=== PATIENT | female | born 1985 | race African-American/Black ===

== ENCOUNTER 2019-01-09 12:38 | Emergency (ER) | payer SELFPAY ==
[~2019-01-09] VITALS: Ht 170.2 cm; Wt 58.0 kg
[2019-01-09 13:08] VITALS: Ht 170.2 cm; Wt 58.0 kg
[2019-01-09] MEDS ORDERED: ONDANSETRON (ODT) 4 MG TAB ODT STA ×2 (15:18→17:53)
[2019-01-09] MEDS ORDERED: HYDROmorphONE 2 MG/ML SYG IM STA ×2 (15:18→17:53)
[2019-01-09] MEDS ORDERED: SOD CHLORIDE 0.9% 1,000 ML IV STA (15:18)
[2019-01-09] MEDS ORDERED: DIPHENHYDRAMINE 50 MG INJ IM ONE (16:00)
[2019-01-09] MEDS ORDERED: HYDROmorphONE 4 MG TAB PO ONE (17:30)
[2019-01-09 18:45] VITALS: BP 127/93; PULSE 71; RESP 20
[2019-01-09] MEDS ORDERED: HYDR500C3 PO (19:23)
--- NOTE | 2019-01-09 19:23 | ERD ---
ER Documentation Chief Complaint Chief Complaint sickle cell pain x 3 days HPI 33-year-old female presenting with complaints of sickle cell pain. 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 She has been taking her usual dose of Dilaudid 4 mg every 4 hours at home without relief of her symptoms. She states that her pain is in her low back, legs, and arms. She denies any chest pain, shortness of breath, fever, chills, recent illnesses, vomiting or diarrhea. She takes hydroxyurea on a daily basis. However she states that she is running out. ROS All systems reviewed and are negative except as per history of present illness. Medications Home Meds Active Scripts Hydroxyurea* (Hydroxyurea*) 500 Mg Capsule, 500 MG PO BID, #14 CAP Prov:STEVENSON GONZALEZ MD 01/09/19 Allergies Allergies: Coded Allergies: No Known Allergy (Unverified , 01/09/19) PMhx/Soc History of Surgery: Yes (CAESARIAN SECTION X 2; CYST REMOVAL) Hx Miscellaneous Medical Probl: Yes (SICKLE CELL ANEMIA) Hx Alcohol Use: No Hx Substance Use: No Hx Tobacco Use: No Smoking Status: Never smoker FmHx Family History: No diabetes Physical Exam Vitals Vital Signs Date Temp Pulse Resp B/P (MAP) Pulse Ox O2 O2 Flow FiO2 Time Delivery Rate 01/09/19 98.6 71 20 127/93 97 Room Air 18:45 (104) 01/09/19 98.3 74 18 109/56 100 13:08 (73) Physical Exam Const: No acute distress, sitting comfortably in bed Head: Atraumatic Eyes: Normal Conjunctiva, no scleral icterus, PERRLA ENT: Normal External Ears, Nose and Mouth. Neck: Full range of motion. No meningismus. Resp: Clear to auscultation bilaterally Cardio: Regular rate and rhythm, no murmurs Abd: Soft, non tender, non distended. Normal bowel sounds Skin: No petechiae or rashes Back: No midline or flank tenderness Ext: No cyanosis, or edema Neur: Awake and alert, normal speech, no facial asymmetry, moving all extremities, normal gait Psych: Normal Mood and Affect Result Diagram: 01/09/19 1528 01/09/19 1527 Results 24 hrs Laboratory Tests Test 01/09/19 15:27 01/09/19 15:28 01/09/19 15:37 01/09/19 15:39 Sodium Level 139 mmol/L Potassium Level 3.7 mmol/L Chloride Level 108 mmol/L Carbon Dioxide 24 mmol/L Level Anion Gap 7 Blood Urea Nitrogen 12 mg/dl Creatinine 0.53 mg/dl Est Glomerular > 60 mL/min Filtrat Rate mL/min Glucose Level 75 mg/dl Calcium Level 8.9 mg/dl Total Bilirubin 0.2 mg/dl Direct Bilirubin 0.00 mg/dl Indirect Bilirubin 0.2 mg/dl Aspartate Amino 27 IU/L Transf (AST/SGOT) Alanine 20 IU/L Aminotransferase (A LT/SGPT) Alkaline 74 IU/L Phosphatase Total Protein 7.2 g/dl Albumin 3.9 g/dl Globulin 3.30 g/dl Albumin/Globulin 1.18 Ratio White Blood Count 5.1 10^3/ul Red Blood Count 3.57 10^6/ul Hemoglobin 8.1 g/dl Hematocrit 27.4 % Mean Corpuscular 76.8 fl Volume Mean Corpuscular 22.7 pg Hemoglobin Mean Corpuscular 29.6 g/dl Hemoglobin Concent Red Cell 14.6 % Distribution Width Platelet Count 341 10^3/UL Mean Platelet 9.9 fl Volume Immature 0.200 % Granulocytes % Neutrophils % 47.0 % Lymphocytes % 45.1 % Monocytes % 5.7 % Eosinophils % 1.6 % Basophils % 0.4 % Nucleated Red Blood 0.0 /100WBC Cells % Immature 0.010 10^3/ul Granulocytes # Neutrophils # 2.4 10^3/ul Lymphocytes # 2.3 10^3/ul Monocytes # 0.3 10^3/ul Eosinophils # 0.1 10^3/ul Basophils # 0.0 10^3/ul Nucleated Red Blood 0.0 10^3/ul Cells # Absolute 0.053 X10^6 Reticulocyte Count Percent 1.5 % Reticulocyte Count Bedside Urine pH 6.0 (LAB) Bedside Urine Trace Protein (LAB) Bedside Urine Negative Glucose (UA) Bedside Urine Negative Ketones (LAB) Bedside Urine Blood Negative Bedside Urine Negative Nitrite (LAB) Bedside Urine Negative Leukocyte Esterase (L POC Beta HCG, NEGATIVE Qualitative Current Medications Medications Dose Sig/Edmar Start Time Status Last (Trade) Ordered Route PRN Stop Time Admin Dose Reason Admin 2 mg ONCE STAT 01/09/19 DC 01/09/19 Hydromorphone IM 15:18 15:43 HCl 01/09/19 15:20 (Dilaudid) Ondansetron 4 mg ONCE STAT 01/09/19 DC 01/09/19 HCl (Zofran ODT 15:18 15:43 Odt) 01/09/19 15:20 Sodium 1,000 ml @ Q1H STAT 01/09/19 DC Chloride 1,000 mls/hr IV 15:18 01/09/19 16:17 25 mg ONCE ONCE 01/09/19 DC 01/09/19 Diphenhydrami IM 16:00 16:15 ne HCl 01/09/19 16:03 (Benadryl) 4 mg ONCE ONCE 01/09/19 DC Hydromorphone PO 17:30 HCl 01/09/19 17:31 (Dilaudid) 2 mg ONCE STAT 01/09/19 DC 01/09/19 Hydromorphone IM 17:53 18:13 HCl 01/09/19 17:54 (Dilaudid) Ondansetron 8 mg ONCE STAT 01/09/19 DC 01/09/19 HCl (Zofran ODT 17:53 18:12 Odt) 01/09/19 17:54 25 mg ONCE ONCE 01/09/19 DC 01/09/19 Diphenhydrami PO 19:30 19:34 ne HCl 01/09/19 19:31 (Benadryl) Procedures/MDM EMERGENT LABS AND DIAGNOSTIC STUDIES: Lab Results above were reviewed and interpreted by me. CBC: anemia with Hgb 8.1. no evidence of infection CMP: No evidence of electrolyte abnormality, renal failure, hypoglycemia, hemolysis, liver failure, or biliary obstruction Retic count normal UA: no evidence of infection negative Initial Nursing notes reviewed. Previous Medical Records requested via the Electronic Health Record. EMERGENCY DEPARTMENT COURSE / MEDICAL DECISION MAKING: Patient is presenting with stated history of sickle cell anemia, however I have no previous records on her. She is hemodynamically stable with no signs of sepsis or acute chest syndrome. She is neurovascularly intact on exam. IV fluids were ordered but it was difficult to get an IV on the patient. She req uested IM pain medications as well as Benadryl which was given. She received 2 doses of IM Dilaudid as well as 1 dose of oral Dilaudid. Upon reevaluation, patient felt much better. She had been orally hydrating while in the ER. I feel the patient is stable for discharge at this time. She did request a refill of her hydroxyurea, which was given. I discussed with her the importance of arranging outpatient follow-up with a tetryl nitrator operator and primary care physician with her chronic condition. Patient is agreeable with this plan. Patient's blood pressure was elevated (>120/80) but appears stable without evidence of hypertensive emergency or urgency. The patient was counseled about the risks of hypertension and urged to pursue outpatient monitoring and therapy within a week with their primary care physician. Departure Diagnosis: Primary Impression: Sickle cell pain crisis Condition: Stable Patient Instructions: Sickle Cell Pain Crisis Referrals: [facility] YOU HAVE RECEIVED A MEDICAL SCREENING EXAM AND THE RESULTS INDICATE THAT YOU DO NOT HAVE A CONDITION THAT REQUIRES URGENT TREATMENT IN THE EMERGENCY DEPARTMENT. FURTHER EVALUATION AND TREATMENT OF YOUR CONDITION CAN WAIT UNTIL YOU ARE SEEN IN YOUR DOCTORS OFFICE WITHIN THE NEXT 1-2 DAYS. IT IS YOUR RESPONSIBILITY TO MAKE AN APPOINTMENT FOR FOLOW-UP CARE. IF YOU HAVE A PRIMARY DOCTOR --you should call your primary doctor and schedule an appointment IF YOU DO NOT HAVE A PRIMARY DOCTOR YOU CAN CALL OUR PHYSICIAN REFERRAL HOTLINE AT IF YOU CAN NOT AFFORD TO SEE A PHYSICIAN YOU CAN CHOSE FROM THE FOLLOWING [facility] [address] [facility] [address] [facility] [address] [facility] [address] [facility] [address]. [facility]. [address] [facility]. [facility] YOU HAVE RECEIVED A MEDICAL SCREENING EXAM AND THE RESULTS INDICATE THAT YOU DO NOT HAVE A CONDITION THAT REQUIRES URGENT TREATMENT IN THE EMERGENCY DEPARTMENT. FURTHER EVALUATION AND TREATMENT OF YOUR CONDITION CAN WAIT UNTIL YOU ARE SEEN IN YOUR DOCTORS OFFICE WITHIN THE NEXT 1-2 DAYS. IT IS YOUR RESPONSIBILITY TO MAKE AN APPOINTMENT FOR FOLOW-UP CARE. IF YOU HAVE A PRIMARY DOCTOR --you should call your primary doctor and schedule and appointment IF YOU DO NOT HAVE A PRIMARY DOCTOR YOU CAN CALL OUR PHYSICIAN REFERRAL HOTLINE AT . IF YOU CAN NOT AFFORD TO SEE A PHYSICIAN YOU CAN CHOSE FROM THE FOLLOWING [facility] INSTITUTIONS: [facility] [place] [address] [place] [address] [facility] [address] [place] [address] [facility] [address] [place] [address] STEVENSON GONZALEZ MD Jan 09, 2019 19:23
[2019-01-09] MEDS ORDERED: DIPHENHYDRAMINE 25 MG CAP PO ONE (19:30)
== END 2019-01-09 19:35 | disposition home or self-care (01) ==
LOC: E/R 12:38
DX: D57.419 Sickle-cell thalassemia, unspecified, with crisis (principal)
CPT/HCPCS: 80053; 81003; 81025; 85025; 85045; 86850; 86900; 86901; 99283; J1170; J1200; J7030

== ENCOUNTER 2019-01-15 18:34 | Emergency (ER) | payer SELFPAY ==
[~2019-01-15] VITALS: Ht 157.5 cm; Wt 58.6 kg
[~2019-01-15 18:34] MED LIST: HYDR500C3 PO
[2019-01-15 19:21] VITALS: Ht 157.5 cm; Wt 58.6 kg
[2019-01-16] MEDS ORDERED: ONDANSETRON (ODT) 4 MG TAB ODT STA (01:09)
[2019-01-16] MEDS ORDERED: HYDROmorphONE 2 MG/ML SYG IM STA ×2 (01:09→04:11)
[2019-01-16] MEDS ORDERED: DIPHENHYDRAMINE 50 MG INJ IM ONE (01:30)
[2019-01-16] MEDS ORDERED: IRON1TAB78 PO (02:48)
[2019-01-16] MEDS ORDERED: FOLI-49 PO (02:48)
[2019-01-16] MEDS ORDERED: BEN50 PO (02:48)
[2019-01-16] MEDS ORDERED: ONDA8TAB83 PO (02:48)
[2019-01-16] MEDS ORDERED: SERT-165 PO (02:51)
[2019-01-16] MEDS ORDERED: HYDR4TAB PO (02:51)
[2019-01-16] MEDS ORDERED: SERT50TA6 PO (02:51)
[2019-01-16] MEDS ORDERED: TRAZ-111 PO (02:51)
[2019-01-16 05:40] VITALS: BP 128/79; PULSE 78; RESP 16
--- NOTE | 2019-01-29 02:14 | ERD ---
ER Documentation Chief Complaint Chief Complaint worsening back pain x2 days. hx sickle cell HPI This is a 33-year-old female worsening back pain for 2 days. Patient has history of sickle cell pain disease. Pain is moderate to severe in severity. She is been seen here multiple times for this complaints recently. ROS All systems reviewed and are negative except as per history of present illness. Medications Home Meds Active Scripts Hydroxyurea* (Hydroxyurea*) 500 Mg Capsule, 500 MG PO BID, #14 CAP Prov:STEVENSON GONZALEZ MD 01/09/19 Reported Medications Quetiapine Fumarate* (Seroquel*) 400 Mg Tablet, 400 MG PO BID, TAB 3 Trazodone Hcl* (Trazodone Hcl*) 50 Mg Tablet, 50 MG PO BID, #60 TAB 01/16/19 Sertraline Hcl* (Sertraline Hcl*) 100 Mg Tablet, 100 MG PO QAM, #30 TAB 01/16/19 Sertraline Hcl* (Sertraline Hcl*) 50 Mg Tablet, 50 MG PO QPM, #30 TAB 01/16/19 Hydromorphone Hcl* (Hydromorphone Hcl*) 4 Mg Tablet, 4 MG PO Q4H PRN for PAIN, TAB 01/16/19 Diphenhydramine Hcl* (Benadryl*) 50 Mg Cap, 50 MG PO Q6 PRN for ITCHING, CAP 01/16/19 Ondansetron Hcl* (Ondansetron Hcl*) 8 Mg Tablet, 8 MG PO Q6H PRN for NAUSEA AND OR VOMITING, TAB 01/16/19 Folic Acid* (Folic Acid*) 1 Mg Tablet, 1 MG PO DAILY, TAB 01/16/19 Discontinued Reported Medications Iron,Carbonyl/Vit C/Vit B12/Fa (IRON 100 PLUS TABLET) 1 Each Tablet, 1 EACH PO, TAB 01/16/19 Allergies Allergies: Coded Allergies: ketorolac (Unverified Allergy, Unknown, HIVES, 01/16/19) morphine (Unverified Allergy, Unknown, HIVES, 01/16/19) prochlorperazine (Unverified Allergy, Unknown, HIVES, 01/16/19) haloperidol (Unverified Adverse Reaction, Unknown, 01/16/19) metoclopramide (Unverified Adverse Reaction, Unknown, 01/16/19) PMhx/Soc History of Surgery: Yes (CAESARIAN SECTION X 2; CYST REMOVAL) Hx Miscellaneous Medical Probl: Yes (SICKLE CELL ANEMIA) Hx Alcohol Use: No Hx Substance Use: No Hx Tobacco Use: No Smoking Status: Never smoker Physical Exam Physical Exam Const: No acute distress Head: Atraumatic Eyes: Normal Conjunctiva ENT: Normal External Ears, Nose and Mouth. Neck: Full range of motion. No meningismus. Resp: Clear to auscultation bilaterally Cardio: Regular rate and rhythm, no murmurs Abd: Soft, non tender, non distended. Normal bowel sounds Skin: No petechiae or rashes Back: No midline or flank tenderness Ext: No cyanosis, or edema Neur: Awake and alert Psych: Normal Mood and Affect Results 24 hrs Laboratory Tests Test 01/16/19 02:52 White Blood Count 6.3 10^3/ul Red Blood Count 3.88 10^6/ul Hemoglobin 8.9 g/dl Hematocrit 29.9 % Mean Corpuscular Volume 77.1 fl Mean Corpuscular Hemoglobin 22.9 pg Mean Corpuscular Hemoglobin Concent 29.8 g/dl Red Cell Distribution Width 15.0 % Platelet Count 339 10^3/UL Mean Platelet Volume 9.8 fl Immature Granulocytes % 0.500 % Neutrophils % 45.1 % Lymphocytes % 46.1 % Monocytes % 5.6 % Eosinophils % 2.2 % Basophils % 0.5 % Nucleated Red Blood Cells % 0.0 /100WBC Immature Granulocytes # 0.030 10^3/ul Neutrophils # 2.8 10^3/ul Lymphocytes # 2.9 10^3/ul Monocytes # 0.4 10^3/ul Eosinophils # 0.1 10^3/ul Basophils # 0.0 10^3/ul Nucleated Red Blood Cells # 0.0 10^3/ul Absolute Reticulocyte Count 0.082 X10^6 Percent Reticulocyte Count 2.1 % Sodium Level 144 mmol/L Potassium Level 3.6 mmol/L Chloride Level 109 mmol/L Carbon Dioxide Level 25 mmol/L Anion Gap 10 Blood Urea Nitrogen 14 mg/dl Creatinine 0.69 mg/dl Est Glomerular Filtrat Rate mL/min > 60 mL/min Glucose Level 110 mg/dl Calcium Level 9.4 mg/dl Lactate Dehydrogenase 455 IU/L Current Medications Medications Dose Sig/Edmar Start Time Status Last (Trade) Ordered Route PRN Stop Time Admin Dose Reason Admin 2 mg ONCE STAT 01/16/19 DC 01/16/19 Hydromorphone IM 01:09 01:47 HCl 01/16/19 01:11 (Dilaudid) 50 mg ONCE ONCE 01/16/19 DC 01/16/19 Diphenhydrami IM 01:30 01:47 ne HCl 01/16/19 01:31 (Benadryl) Ondansetron 4 mg ONCE STAT 01/16/19 DC 01/16/19 HCl (Zofran ODT 01:09 01:45 Odt) 01/16/19 01:11 2 mg ONCE STAT 01/16/19 DC 01/16/19 Hydromorphone IM 04:11 04:54 HCl 01/16/19 04:12 (Dilaudid) Procedures/MDM Medical decision make: 33-year-old female with sickle cell pain crisis. At this point clinically stable for outpatient management. Pain is resolved. She will be discharged home. Departure Diagnosis: Primary Impression: Back pain Back pain location: back pain in unspecified location Chronicity: unspeci fied Back pain laterality: unspecified Qualified Codes: M54.9 - Dorsalgia, unspecified Condition: Stable Patient Instructions: Back Pain (Acute Or Chronic) CAILIN BREWSTER Jan 29, 2019 02:14
== END 2019-01-16 05:55 | disposition home or self-care (01) ==
LOC: E/R 18:34
DX: M54.9 Dorsalgia, unspecified (principal); D57.419 Sickle-cell thalassemia, unspecified, with crisis
CPT/HCPCS: 80048; 83615; 85025; 85045; 96372; 99284; J1170; J1200

== ENCOUNTER 2019-01-19 09:21 | Inpatient (IN) | payer SELFPAY ==
[~2019-01-19] VITALS: Ht 172.7 cm; Wt 57.8 kg
[~2019-01-19 09:21] MED LIST changes: +BEN50 PO; +FOLI-49 PO; +HYDR4TAB PO; +IRON1TAB78 PO; +ONDA8TAB83 PO; +SERT-165 PO; +SERT50TA6 PO; +TRAZ-111 PO
[2019-01-19 09:24] VITALS: Ht 172.7 cm; Wt 57.8 kg
[2019-01-19] MEDS ORDERED: ONDANSETRON (ODT) 4 MG TAB ODT STA (09:45)
[2019-01-19] MEDS ORDERED: HYDROmorphONE 2 MG/ML SYG IM STA (09:45)
[2019-01-19] MEDS ORDERED: DIPHENHYDRAMINE 50 MG INJ IM ONE (10:00)
[2019-01-19] MEDS ORDERED: ONDANSETRON 4 MG INJ IV STA (10:53)
[2019-01-19] MEDS ORDERED: SOD CHLORIDE 0.9% 1,000 ML IV STA (10:53)
[2019-01-19] MEDS ORDERED: HYDROmorphONE 1 MG/ML SYG IV STA (10:53)
[2019-01-19] MEDS ORDERED: DIPHENHYDRAMINE 50 MG INJ IV ONE ×2 (11:00→14:00)
--- NOTE | 2019-01-19 11:00 | ERD ---
ER Documentation Chief Complaint Chief Complaint pt bib self with sickle cell pain starting a few days ago, HPI This is a 33-year-old female history of sickle cell anemia recently moved to [facility] who presents to the emergency room complaining of pain to her back and bilateral legs. This is similar in location and character to a regular pain but uncontrolled. She usually takes 4 mg p.o. Dilaudid at home. She denies any fevers chills cough or chest pain. ROS All systems reviewed and are negative except as per history of present illness. Medications Home Meds Active Scripts Hydroxyurea* (Hydroxyurea*) 500 Mg Capsule, 500 MG PO BID, #14 CAP Prov:STEVENSON GONZALEZ MD 01/09/19 Reported Medications Trazodone Hcl* (Trazodone Hcl*) 50 Mg Tablet, 50 MG PO BID, #60 TAB 01/16/19 Sertraline Hcl* (Sertraline Hcl*) 100 Mg Tablet, 100 MG PO QAM, #30 TAB 01/16/19 Sertraline Hcl* (Sertraline Hcl*) 50 Mg Tablet, 50 MG PO QPM, #30 TAB 01/16/19 Hydromorphone Hcl* (Hydromorphone Hcl*) 4 Mg Tablet, 4 MG PO Q4H PRN for PAIN, TAB 01/16/19 Diphenhydramine Hcl* (Benadryl*) 50 Mg Cap, 50 MG PO Q6 PRN for ITCHING, CAP 01/16/19 Ondansetron Hcl* (Ondansetron Hcl*) 8 Mg Tablet, 8 MG PO Q6H PRN for NAUSEA AND OR VOMITING, TAB 01/16/19 Iron,Carbonyl/Vit C/Vit B12/Fa (IRON 100 PLUS TABLET) 1 Each Tablet, 1 EACH PO, TAB 01/16/19 Folic Acid* (Folic Acid*) 1 Mg Tablet, 1 MG PO DAILY, TAB 01/16/19 Allergies Allergies: Coded Allergies: ketorolac (Unverified Allergy, Unknown, HIVES, 01/16/19) morphine (Unverified Allergy, Unknown, HIVES, 01/16/19) prochlorperazine (Unverified Allergy, Unknown, HIVES, 01/16/19) haloperidol (Unverified Adverse Reaction, Unknown, 01/16/19) metoclopramide (Unverified Adverse Reaction, Unknown, 01/16/19) PMhx/Soc History of Surgery: Yes (PARTIAL SPLENECTOMY; CAESARIAN SECTION X 2; OVARIAN CYST REMOVAL) Anesthesia Reaction: No Hx Neurological Disorder: No Hx Respiratory Disorders: Yes (ASTHMA) Hx Cardiac Disorders: No Hx Psychiatric Problems: No Hx Miscellaneous Medical Probl: Yes (SICKLE CELL ANEMIA) Hx Alcohol Use: No Hx Substance Use: No Hx Tobacco Use: No Smoking Status: Never smoker FmHx Family History: No diabetes Physical Exam Vitals Vital Signs Date Temp Pulse Resp B/P (MAP) Pulse Ox O2 O2 Flow FiO2 Time Delivery Rate 01/19/19 97.3 76 16 135/83 100 09:24 (100) Physical Exam General: Well developed, well nourished, no acute distress Head: Normocephalic, atraumatic. Eyes: Pupils equally reactive, EOM intact ENT: Moist mucous membranes Neck: Supple, no lymphadenopathy Respiratory: Lungs clear bilaterally, no distress Cardiovascular: RRR, no murmurs, rubs, or gallops Abdominal: Soft, non-tender, non-distended, no peritoneal signs : Deferred MSK: No edema, no unilateral swelling, 5/5 strength Neurologic: Alert and oriented, moving all extremities, normal speech, no focal weakness, no cerebellar signs Skin: No rash Psych: Normal mood Results 24 hrs Laboratory Tests Test 01/19/19 10:18 POC Beta HCG, Qualitative NEGATIVE Current Medications Medications Dose Sig/Edmar Start Time Status Last (Trade) Ordered Route PRN Stop Time Admin Dose Reason Admin 2 mg ONCE STAT 01/19/19 DC 01/19/19 Hydromorphone IM 09:45 01/19/19 09:53 HCl 09:46 (Dilaudid) 50 mg ONCE ONCE 01/19/19 DC 01/19/19 Diphenhydrami IM 10:00 01/19/19 09:53 ne HCl 10:01 (Benadryl) Ondansetron 4 mg ONCE STAT 01/19/19 DC 01/19/19 HCl (Zofran ODT 09:45 01/19/19 09:53 Odt) 09:46 Sodium 1,000 ml @ Q1H STAT 01/19/19 Chloride 1,000 mls/hr IV 10:53 01/19/19 11:52 1 mg ONCE STAT 01/19/19 DC Hydromorphone IV 10:53 01/19/19 HCl 10:56 (Dilaudid) Ondansetron 4 mg ONCE STAT 01/19/19 DC HCl (Zofran IV 10:53 01/19/19 Inj) 10:56 25 mg ONCE ONCE 01/19/19 DC Diphenhydrami IV 11:00 01/19/19 ne HCl 11:01 (Benadryl) Procedures/MDM LAB INTERPRETATION: Laboratory testing is still pending, to be followed by admitting team MEDICAL DECISION MAKING: Patient presents with an exacerbation of pain crisis likely secondary to environmental factors as it is cold and rainy outside and very consistent with her baseline. She exhibits no signs or symptoms concerning for infectious process, acute chest syndrome or acute hemolysis. We discussed a single round of pain medication and potentially discharge. ER COURSE: * Patient was given pain control medication. Persistence of symptoms warrants laboratory testing and inpatient hospitalization. * Patient will be given a second dose of Dilaudid, IV fluids and laboratory testing for hemolysis was initiated. CONSULTATION: [None] DISPOSITION PLAN: Accepting care team and consultations: I discussed the current laboratory data, diagnostic imaging and emergency care provided. Admitting team: Dr. Mccall Admitting team indication: Insurance directed Departure Diagnosis: Primary Impression: Sickle cell pain crisis Condition: Stable LEON EMANUEL MD Jan 19, 2019 11:00
[2019-01-19] MEDS ORDERED: ONDANSETRON 4 MG INJ IV PRN ×2 (12:00→12:30)
[2019-01-19] MEDS ORDERED: ACETAMINOPHEN 325 MG TAB PO PRN ×2 (12:00→12:30)
[2019-01-19] MEDS ORDERED: NACL 0.9% 3 ML SYG IV SCH (12:30)
[2019-01-19] MEDS ORDERED: HYDROmorphONE 1 MG/ML SYG IV PRN (12:30)
--- NOTE | 2019-01-19 12:43 | HP ---
Date/Time of Note Date/Time of Note DATE: 01/19/19 TIME: 12:40 Assessment/Plan VTE Prophylaxis SCD applied (from Nsg): Yes Pharmacological prophylaxis: NA/contraindicated Pharm contraindication: low risk/ambulating Lines/Catheters IV Catheter Type (from Nrsg): Mid Line Assessment/Plan Hospital Course SUBJECTIVE: Seen and evaluated patient in ER room 20. Patient with continued complaints of back pain, bilateral lower extremity pain. OBJECTIVE: Vital signs-see below PHYSICAL EXAM: Constitutional: Well-developed, adequately built AA female, complaining of lower back pain and bilateral lower extremity pain. Psych: nl mood/affect, no complaints Head: atraumatic, normocephalic Eyes: nl conjunctiva, nl sclera ENMT: mucosa pink and moist, nl external ears & nose Neck: non-tender, supple Respiratory: clear to auscultation, normal air movement Cardiovascular: nl pulses, regular rate and rhythm Gastrointestinal: non-tender, soft, bowel sounds active in all 4 quadrants. Musculoskeletal/extremities: nl extremities to inspection, motor strength equal bilaterally, no focal deficit. Normal pulses,no cyanosis, no edema. Neurological: Alert oriented 3,nl speech, nl strength Skin: nl turgor ASSESSMENT/PLAN: 33-year-old AA female with a known history of sickle cell anemia, sleep disorders, here with sickle cell pain crisis. 1. Sickle cell pain crisis. -Admit to medical surgical floor. -We will give IV Dilaudid as needed, IV fluids and obtain lower extremity ultrasound to rule out DVT. 2. Sickle cell anemia -Stable H&H, not requiring transfusion of blood products at this time. -Resume hydroxyurea. -Continue to monitor. 3. Anxiety/sleep disorders. -Resume home medications. DVT prophylaxis: SCDs PUD prophylaxis: Pepcid CODE STATUS: Full code Diet: Regular. Rest of the management depend on hospital course. Approximately 60 m spent on this history and physical. Patient was seen in collaboration with Result Diagram: 01/19/19 1138 01/19/19 1138 Results 24hrs Laboratory Tests Test 01/19/19 10:18 01/19/19 11:38 POC Beta HCG, Qualitative NEGATIVE White Blood Count 5.4 Red Blood Count 3.81 L Hemoglobin 8.4 L Hematocrit 29.3 L Mean Corpuscular Volume 76.9 L Mean Corpuscular Hemoglobin 22.0 L Mean Corpuscular Hemoglobin Concent 28.7 L Red Cell Distribution Width 15.1 H Platelet Count 299 Mean Platelet Volume 9.8 Immature Granulocytes % 0.200 Neutrophils % 60.5 Lymphocytes % 33.0 Monocytes % 3.9 Eosinophils % 2.0 Basophils % 0.4 Nucleated Red Blood Cells % 0.0 Immature Granulocytes # 0.010 Neutrophils # 3.3 Lymphocytes # 1.8 Monocytes # 0.2 L Eosinophils # 0.1 Basophils # 0.0 Nucleated Red Blood Cells # 0.0 Absolute Reticulocyte Count 0.066 Percent Reticulocyte Count 1.7 H Prothrombin Time 12.9 Prothrombin Time Ratio 1.0 INR International Normalized Ratio 0.96 Activated Partial Thromboplast Time 25.1 Sodium Level 141 Potassium Level 3.9 Chloride Level 109 Carbon Dioxide Level 24 Anion Gap 8 Blood Urea Nitrogen 16 Creatinine 0.72 Est Glomerular Filtrat Rate mL/min > 60 Glucose Level 83 Calcium Level 9.3 Total Bilirubin 0.2 Direct Bilirubin 0.00 Indirect Bilirubin 0.2 Aspartate Amino Transf (AST/SGOT) 38 Alanine Aminotransferase (ALT/SGPT) 16 Alkaline Phosphatase 87 Total Protein 7.6 Albumin 4.1 Globulin 3.50 H Albumin/Globulin Ratio 1.17 Serum HCG, Qualitative NEGATIVE HPI/ROS Admit Date/Time Admit Date/Time Jan 19, 2019 at 11:34 Hx of Present Illness 33-year-old -[place]rist[place] female with a history of sickle cell anemia, anxiety/sleep disorders, presented to the emergency room with worsening back/lower extremity pain, states she is in "sickle cell crisis". Patient rece ntly came from [place] and not intending to go back there to live anymore. Patient stated that she tried her 4 mg Dilaudid prescription at home, and was not helping her for the past 4 days, decided to come to the emergency room. Patient denied fever, chills, cough, chest pain, palpitation, shortness of breath, nausea, vomiting, abdominal pain, loss of consciousness, dizziness or other constitutional symptoms. In the emergency room, patient was noted with a hemoglobin 8.4, hematocrit 29.3 with microcytic indicis. Stable vital signs. She was given 2 mg Dilaudid IM with no relief of pain, then she got 1 mg IV with some relief. She was given a liter of normal saline bolus, 25 mg Benadryl. ROS A 12 point review of system was assessed and is negative other than what is mentioned in the HPI. PMH/Family/Social Past Medical History See HPI Medications Current Medications Ondansetron HCl (Zofran Inj) 4 mg BRIDGE ORDER PRN IV NAUSEA/VOMITING; Start 01/19/19 at 12:00; Stop 01/20/19 at 11:59 Acetaminophen (Tylenol Tab) 650 mg ER BRIDGE PRN PO .MILD PAIN 1-3 OR TEMP; Start 01/19/19 at 12:00; Stop 01/20/19 at 11:59 Sodium Chloride 1,000 ml @ 125 mls/hr Q8H IV ; Start 01/19/19 at 12:14 IV Flush (NS 3 ml) 3 ml PER PROTOCOL IV ; Start 01/19/19 at 12:30; Status UNV Ondansetron HCl (Zofran Inj) 4 mg Q6H PRN IV NAUSEA/VOMITING; Start 01/19/19 at 12:30; Status UNV Acetaminophen (Tylenol Tab) 650 mg Q6H PRN PO .PAIN 1-3 OR TEMP; Start 01/19/19 at 12:30; Status UNV Famotidine (Pepcid) 20 mg Q12 PO ; Start 01/19/19 at 21:00; Status UNV Hydromorphone HCl (Dilaudid) 1 mg Q4H PRN IV SEVERE PAIN LEVEL 7-10; Start 01/19/19 at 12:30; Status UNV Diphenhydramine HCl (Benadryl) 50 mg Q6 PRN PO ITCHING; Start 01/19/19 at 12:30; Status UNV Folic Acid (Folic Acid) 1 mg DAILY PO ; Start 01/20/19 at 09:00; Status UNV Hydroxyurea (Hydrea) 500 mg BID PO ; Start 01/19/19 at 21:00; Status UNV Sertraline HCl (Zoloft) 50 mg QPM PO ; Start 01/19/19 at 21:00; Status UNV Sertraline HCl (Zoloft) 100 mg QAM PO ; Start 01/20/19 at 09:00; Status UNV Trazodone HCl (Desyrel) 50 mg HS PRN PO INSOMNIA; Start 01/19/19 at 12:30; Status UNV Coded Allergies: ketorolac (Unverified Allergy, Unknown, HIVES, 01/16/19) morphine (Unverified Allergy, Unknown, HIVES, 01/16/19) prochlorperazine (Unverified Allergy, Unknown, HIVES, 01/16/19) haloperidol (Unverified Adverse Reaction, Unknown, 01/16/19) metoclopramide (Unverified Adverse Reaction, Unknown, 01/16/19) Past Surgical History None Social History Denied history of alcohol, smoking or illicit drug use. Smoking Status: Never smoker Exam/Review of Systems Vital Signs Vitals Vital Signs Date Temp Pulse Resp B/P (MAP) Pulse Ox O2 O2 Flow FiO2 Time Delivery Rate 01/19/19 98.9 79 18 110/95 100 Nasal 2.0 12:32 (100) Cannula MO CADENA NP Jan 19, 2019 12:43
[2019-01-19 13:30] VITALS: BP 110/70; PULSE 86; RESP 17
[2019-01-19] MEDS: SOD CHLORIDE 0.9% 1,000 ML IV SCH ×2 (13:46→21:57)
[2019-01-19] MEDS: HYDROmorphONE 2 MG/ML SYG IV PRN ×3 (14:46→22:54)
[2019-01-19 20:00] VITALS: BP 115/56; PULSE 81; RESP 20
[2019-01-19] MEDS ORDERED: QUET400T PO (20:26)
[2019-01-19] MEDS ORDERED: QUETIAPINE 100 MG TAB PO ONE (21:30)
[2019-01-19] MEDS: FAMOTIDINE 20 MG TAB PO SCH (21:57)
[2019-01-19] MEDS: SERTRALINE 50 MG TAB PO SCH (21:58)
[2019-01-19] MEDS: traZODone 50 MG TAB PO PRN (21:59)
[2019-01-19] MEDS: HYDROXYUREA 500 MG CAP PO SCH (22:33)
[2019-01-19] MEDS: DIPHENHYDRAMINE 50 MG CAP PO PRN (22:54)
[2019-01-20 02:00] VITALS: BP 100/51; PULSE 99; RESP 18
[2019-01-20] MEDS: DIPHENHYDRAMINE 50 MG CAP PO PRN ×2 (05:27→17:07)
[2019-01-20] MEDS: SOD CHLORIDE 0.9% 1,000 ML IV SCH ×3 (05:27→21:57)
[2019-01-20] MEDS: HYDROmorphONE 2 MG/ML SYG IV PRN ×5 (05:27→22:01)
[2019-01-20 07:41] VITALS: BP 94/50; PULSE 78; RESP 16
[2019-01-20] MEDS: FAMOTIDINE 20 MG TAB PO SCH (08:51)
[2019-01-20] MEDS: FOLIC ACID 1 MG TAB PO SCH (08:51)
[2019-01-20] MEDS: HYDROXYUREA 500 MG CAP PO SCH ×2 (08:53→20:19)
[2019-01-20] MEDS: SERTRALINE 100 MG TAB PO SCH (08:56)
--- NOTE | 2019-01-20 10:55 | PN ---
Date/Time of Note Date/Time of Note DATE: 01/20/19 TIME: 10:53 Assessment/Plan VTE Prophylaxis Risk score (from Ns)>0 risk: 1 SCD applied (from Ns): Yes Pharmacological prophylaxis: NA/contraindicated Pharm contraindication: low risk/ambulating Lines/Catheters IV Catheter Type (from [facility]): Mid Line Assessment/Plan Hospital Course 1. Sickle cell pain crisis. -Continue IV Dilaudid as needed, IV fluids and lower extremity ultrasound is negative for DVT 2. Sickle cell anemia -Stable H&H, not requiring transfusion of blood products at this time. -Resumed hydroxyurea. -Continue to monitor. 3. Anxiety/sleep disorders. -Resume home medications. DVT prophylaxis: SCDs DC planning: Continue pain control Result Diagram: 01/20/19 0557 01/20/19 0557 Results 24hrs Laboratory Tests Test 01/19/19 11:38 01/20/19 05:57 White Blood Count 5.4 5.5 Red Blood Count 3.81 L 3.16 L Hemoglobin 8.4 L 7.2 L Hematocrit 29.3 L 24.8 L Mean Corpuscular Volume 76.9 L 78.5 L Mean Corpuscular Hemoglobin 22.0 L 22.8 L Mean Corpuscular Hemoglobin Concent 28.7 L 29.0 L Red Cell Distribution Width 15.1 H 15.0 H Platelet Count 299 248 Mean Platelet Volume 9.8 9.9 Immature Granulocytes % 0.200 0.500 H Neutrophils % 60.5 48.6 Lymphocytes % 33.0 40.9 Monocytes % 3.9 6.9 Eosinophils % 2.0 2.7 Basophils % 0.4 0.4 Nucleated Red Blood Cells % 0.0 0.0 Immature Granulocytes # 0.010 0.030 Neutrophils # 3.3 2.7 Lymphocytes # 1.8 2.3 Monocytes # 0.2 L 0.4 Eosinophils # 0.1 0.2 Basophils # 0.0 0.0 Nucleated Red Blood Cells # 0.0 0.0 Absolute Reticulocyte Count 0.066 Percent Reticulocyte Count 1.7 H Prothrombin Time 12.9 Prothrombin Time Ratio 1.0 INR International Normalized Ratio 0.96 Activated Partial Thromboplast Time 25.1 Sodium Level 141 144 Potassium Level 3.9 4.1 Chloride Level 109 114 H Carbon Dioxide Level 24 23 Anion Gap 8 7 Blood Urea Nitrogen 16 14 Creatinine 0.72 0.64 Est Glomerular Filtrat Rate mL/min > 60 > 60 Glucose Level 83 82 Calcium Level 9.3 8.7 Total Bilirubin 0.2 Direct Bilirubin 0.00 Indirect Bilirubin 0.2 Aspartate Amino Transf (AST/SGOT) 38 Alanine Aminotransferase (ALT/SGPT) 16 Alkaline Phosphatase 87 Total Protein 7.6 Albumin 4.1 Globulin 3.50 H Albumin/Globulin Ratio 1.17 Serum HCG, Qualitative NEGATIVE Magnesium Level 1.9 Subjective 24 Hr Interval Summary Musculoskeletal: bone/joint pain Exam/Review of Systems Exam Vitals Vital Signs Date Temp Pulse Resp B/P (MAP) Pulse Ox O2 O2 Flow FiO2 Time Delivery Rate 01/20/19 97.7 78 16 94/50 (65) 100 07:41 01/19/19 Room Air 13:30 01/19/19 2.0 12:32 Intake and Output 01/19/19 01/19/19 01/20/19 1515:00 23:00 07:00 IntakeIntake Total 480 ml 985 ml BalanceBalance 480 ml 985 ml Constitutional: alert, oriented Respiratory: clear to auscultation Cardiovascular: regular rate and rhythm Gastrointestinal: soft; No distended Musculoskeletal: nl extremities to inspection Results Results 24hrs Laboratory Tests Test 01/19/19 11:38 01/20/19 05:57 White Blood Count 5.4 5.5 Red Blood Count 3.81 L 3.16 L Hemoglobin 8.4 L 7.2 L Hematocrit 29.3 L 24.8 L Mean Corpuscular Volume 76.9 L 78.5 L Mean Corpuscular Hemoglobin 22.0 L 22.8 L Mean Corpuscular Hemoglobin Concent 28.7 L 29.0 L Red Cell Distribution Width 15.1 H 15.0 H Platelet Count 299 248 Mean Platelet Volume 9.8 9.9 Immature Granulocytes % 0.200 0.500 H Neutrophils % 60.5 48.6 Lymphocytes % 33.0 40.9 Monocytes % 3.9 6.9 Eosinophils % 2.0 2.7 Basophils % 0.4 0.4 Nucleated Red Blood Cells % 0.0 0.0 Immature Granulocytes # 0.010 0.030 Neutrophils # 3.3 2.7 Lymphocytes # 1.8 2.3 Monocytes # 0.2 L 0.4 Eosinophils # 0.1 0.2 Basophils # 0.0 0.0 Nucleated Red Blood Cells # 0.0 0.0 Absolute Reticulocyte Count 0.066 Percent Reticulocyte Count 1.7 H Prothrombin Time 12.9 Prothrombin Time Ratio 1.0 INR International Normalized Ratio 0.96 Activated Partial Thromboplast Time 25.1 Sodium Level 141 144 Potassium Level 3.9 4.1 Chloride Level 109 114 H Carbon Dioxide Level 24 23 Anion Gap 8 7 Blood Urea Nitrogen 16 14 Creatinine 0.72 0.64 Est Glomerular Filtrat Rate mL/min > 60 > 60 Glucose Level 83 82 Calcium Level 9.3 8.7 Total Bilirubin 0.2 Direct Bilirubin 0.00 Indirect Bilirubin 0.2 Aspartate Amino Transf (AST/SGOT) 38 Alanine Aminotransferase (ALT/SGPT) 16 Alkaline Phosphatase 87 Total Protein 7.6 Albumin 4.1 Globulin 3.50 H Albumin/Globulin Ratio 1.17 Serum HCG, Qualitative NEGATIVE Magnesium Level 1.9 Medications Medication Current Medications Ondansetron HCl (Zofran Inj) 4 mg BRIDGE ORDER PRN IV NAUSEA/VOMITING; Start 01/19/19 at 12:00; Stop 01/20/19 at 11:59 Acetaminophen (Tylenol Tab) 650 mg ER BRIDGE PRN PO .MILD PAIN 1-3 OR TEMP; Start 01/19/19 at 12:00; Stop 01/20/19 at 11:59 Sodium Chloride 1,000 ml @ 125 mls/hr Q8H IV Last administered on 01/20/19at 05:27; Admin Dose 125 MLS/HR; Start 01/19/19 at 12:14 IV Flush (NS 3 ml) 3 ml PER PROTOCOL IV ; Start 01/19/19 at 12:30 Ondansetron HCl (Zofran Inj) 4 mg Q6H PRN IV NAUSEA/VOMITING; Start 01/19/19 at 12:30 Acetaminophen (Tylenol Tab) 650 mg Q6H PRN PO .PAIN 1-3 OR TEMP; Start 01/19/19 at 12:30 Famotidine (Pepcid) 20 mg Q12 PO Last administered on 01/20/19at 08:51; Admin Dose 20 MG; Start 01/19/19 at 21:00 Diphenhydramine HCl (Benadryl) 50 mg Q6H PRN PO ITCHING Last administered on 01/20/19at 05:27; Admin Dose 50 MG; Start 01/19/19 at 12:30 Folic Acid (Folic Acid) 1 mg DAILY PO Last administered on 01/20/19 08:51; Admin Dose 1 MG; Start 01/20/19 at 09:00 Hydroxyurea (Hydrea) 500 mg BID PO Last administered on 01/20/19 08:53; Admin Dose 500 MG; Start 01/19/19 at 21:00 Sertraline HCl (Zoloft) 50 mg QPM PO Last administered on 01/19/19 21:58; Admin Dose 50 MG; Start 01/19/19 at 21:00 Sertraline HCl (Zoloft) 100 mg QAM PO Last administered on 01/20/19 08:56; Admin Dose 100 MG; Start 01/20/19 at 09:00 Trazodone HCl (Desyrel) 50 mg HS PRN PO INSOMNIA Last administered on 01/19/19 21:59; Admin Dose 50 MG; Start 01/19/19 at 12:30 Hydromorphone HCl (Dilaudid) 2 mg Q4H PRN IV SEVERE PAIN LEVEL 7-10 Last administered on 01/20/19 10:09; Admin Dose 2 MG; Start 01/19/19 at 14:00 TRINIDAD LOVING Jan 20, 2019 10:55
[2019-01-20] MEDS: QUETIAPINE 100 MG TAB PO SCH (12:25)
[2019-01-20] MEDS: SERTRALINE 50 MG TAB PO SCH (20:18)
[2019-01-20 20:24] VITALS: BP 112/72; PULSE 86; RESP 17
[2019-01-20] MEDS ORDERED: QUETIAPINE 100 MG TAB PO SCH (23:00)
[2019-01-21 02:13] VITALS: BP 131/76; PULSE 85; RESP 18
[2019-01-21] MEDS: HYDROmorphONE 2 MG/ML SYG IV PRN ×6 (02:18→23:02)
[2019-01-21] MEDS: SOD CHLORIDE 0.9% 1,000 ML IV SCH ×3 (05:51→20:14)
[2019-01-21 08:02] VITALS: BP 107/66; PULSE 80; RESP 16
[2019-01-21] MEDS ORDERED: QUETIAPINE 100 MG TAB PO SCH (09:00)
[2019-01-21] MEDS: SERTRALINE 100 MG TAB PO SCH (09:20)
[2019-01-21] MEDS: FOLIC ACID 1 MG TAB PO SCH (09:21)
[2019-01-21] MEDS: QUETIAPINE 100 MG TAB PO SCH ×2 (09:21→21:30)
[2019-01-21] MEDS: HYDROXYUREA 500 MG CAP PO SCH ×2 (09:24→21:37)
[2019-01-21 13:45] VITALS: BP 101/65; PULSE 98; RESP 16
--- NOTE | 2019-01-21 16:58 | PN ---
Date/Time of Note Date/Time of Note DATE: 01/21/19 TIME: 16:57 Assessment/Plan VTE Prophylaxis Risk score (from Ns)>0 risk: 1 SCD applied (from Ns): Yes Pharmacological prophylaxis: NA/contraindicated Pharm contraindication: low risk/ambulating Lines/Catheters IV Catheter Type (from [facility]): Mid Line Assessment/Plan Hospital Course 1. Sickle cell pain crisis. -Continue IV Dilaudid as needed, IV fluids and lower extremity ultrasound is negative for DVT 2. Sickle cell anemia -Stable H&H, not requiring transfusion of blood products at this time. -Resumed hydroxyurea. -Continue to monitor. 3. Anxiety/sleep disorders. -Resume home medications. DVT prophylaxis: SCDs DC planning: Continue pain control, anticipate DC home in 1-2 days Result Diagram: 01/21/19 0554 01/20/19 0557 Results 24hrs Laboratory Tests Test 01/21/19 05:54 White Blood Count 5.2 Red Blood Count 3.13 L Hemoglobin 7.0 L Hematocrit 24.4 L Mean Corpuscular Volume 78.0 L Mean Corpuscular Hemoglobin 22.4 L Mean Corpuscular Hemoglobin Concent 28.7 L Red Cell Distribution Width 15.0 H Platelet Count 228 Mean Platelet Volume 9.8 Immature Granulocytes % 0.400 Neutrophils % 51.9 Lymphocytes % 39.0 Monocytes % 5.2 Eosinophils % 3.1 Basophils % 0.4 Nucleated Red Blood Cells % 0.0 Immature Granulocytes # 0.020 Neutrophils # 2.7 Lymphocytes # 2.0 Monocytes # 0.3 Eosinophils # 0.2 Basophils # 0.0 Nucleated Red Blood Cells # 0.0 Subjective 24 Hr Interval Summary Musculoskeletal: bone/joint pain Exam/Review of Systems Exam Vitals Vital Signs Date Temp Pulse Resp B/P (MAP) Pulse Ox O2 O2 Flow FiO2 Time Delivery Rate 01/21/19 98.3 98 16 101/65 93 13:45 (77) 01/19/19 Room Air 13:30 01/19/19 2.0 12:32 Intake and Output 01/20/19 01/20/19 01/21/19 1515:00 23:00 07:00 IntakeIntake Total 1960 ml 1905 ml 1000 ml BalanceBalance 1960 ml 1905 ml 1000 ml Constitutional: alert, oriented Respiratory: clear to auscultation Cardiovascular: regular rate and rhythm Gastrointestinal: soft; No distended Musculoskeletal: nl extremities to inspection Results Results 24hrs Laboratory Tests Test 01/21/19 05:54 White Blood Count 5.2 Red Blood Count 3.13 L Hemoglobin 7.0 L Hematocrit 24.4 L Mean Corpuscular Volume 78.0 L Mean Corpuscular Hemoglobin 22.4 L Mean Corpuscular Hemoglobin Concent 28.7 L Red Cell Distribution Width 15.0 H Platelet Count 228 Mean Platelet Volume 9.8 Immature Granulocytes % 0.400 Neutrophils % 51.9 Lymphocytes % 39.0 Monocytes % 5.2 Eosinophils % 3.1 Basophils % 0.4 Nucleated Red Blood Cells % 0.0 Immature Granulocytes # 0.020 Neutrophils # 2.7 Lymphocytes # 2.0 Monocytes # 0.3 Eosinophils # 0.2 Basophils # 0.0 Nucleated Red Blood Cells # 0.0 Medications Medication Current Medications Sodium Chloride 1,000 ml @ 125 mls/hr Q8H IV Last administered on 01/21/19 15:42; Admin Dose 125 MLS/HR; Start 01/19/19 at 12:14 IV Flush (NS 3 ml) 3 ml PER PROTOCOL IV ; Start 01/19/19 at 12:30 Ondansetron HCl (Zofran Inj) 4 mg Q6H PRN IV NAUSEA/VOMITING; Start 01/19/19 at 12:30 Acetaminophen (Tylenol Tab) 650 mg Q6H PRN PO .PAIN 1-3 OR TEMP Last administered on 01/20/19 20:18; Admin Dose 650 MG; Start 01/19/19 at 12:30 Diphenhydramine HCl (Benadryl) 50 mg Q6H PRN PO ITCHING Last administered on 01/20/19 17:07; Admin Dose 50 MG; Start 01/19/19 at 12:30 Folic Acid (Folic Acid) 1 mg DAILY PO Last administered on 01/21/19 09:21; Admin Dose 1 MG; Start 01/20/19 at 09:00 Hydroxyurea (Hydrea) 500 mg BID PO Last administered on 01/21/19 09:24; Admin Dose 500 MG; Start 01/19/19 at 21:00 Sertraline HCl (Zoloft) 50 mg QPM PO Last administered on 01/20/19 20:18; Admin Dose 50 MG; Start 01/19/19 at 21:00 Sertraline HCl (Zoloft) 100 mg QAM PO Last administered on 01/21/19 09:20; Admin Dose 100 MG; Start 01/20/19 at 09:00 Trazodone HCl (Desyrel) 50 mg HS PRN PO INSOMNIA Last administered on 01/19/19 21:59; Admin Dose 50 MG; Start 01/19/19 at 12:30 Hydromorphone HCl (Dilaudid) 2 mg Q4H PRN IV SEVERE PAIN LEVEL 7-10 Last administered on 01/21/19 15:21; Admin Dose 2 MG; Start 01/19/19 at 14:00 Quetiapine Fumarate (Seroquel) 400 mg BID PO Last administered on 01/21/19 09:21; Admin Dose 400 MG; Start 01/20/19 at 23:15 TRINIDAD LOVING Jan 21, 2019 16:58
[2019-01-21 21:00] VITALS: BP 103/60; PULSE 81; RESP 17
[2019-01-21] MEDS: traZODone 50 MG TAB PO PRN (21:30)
[2019-01-21] MEDS: SERTRALINE 50 MG TAB PO SCH (21:30)
[2019-01-22 02:00] VITALS: BP 103/60; PULSE 87; RESP 18
[2019-01-22] MEDS: SOD CHLORIDE 0.9% 1,000 ML IV SCH (02:27)
[2019-01-22] MEDS: QUETIAPINE 100 MG TAB PO SCH (09:00)
[2019-01-22 09:17] VITALS: BP 109/59; PULSE 83; RESP 20
[2019-01-22] MEDS: FOLIC ACID 1 MG TAB PO SCH (10:01)
[2019-01-22] MEDS: HYDROmorphONE 2 MG/ML SYG IV PRN ×2 (10:01→12:15)
[2019-01-22] MEDS: HYDROXYUREA 500 MG CAP PO SCH (10:02)
[2019-01-22] MEDS: SERTRALINE 100 MG TAB PO SCH (10:13)
--- NOTE | 2019-01-22 13:54 | DS ---
Date/Time of Note Date/Time of Note DATE: 01/22/19 TIME: 13:54 Discharge Summary Admission/Discharge Info Admit Date/Time Jan 19, 2019 at 11:34 Discharge Date/Time Discharge Diagnosis Sickle cell Patient Condition: Stable Hospital Course Treated with IV dilaudid by Dr Mead for sickle cell pain with good effect. I saw her today she said she felt better and wanted to be discharged. 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 Home Meds Active Scripts Hydroxyurea* (Hydroxyurea*) 500 Mg Capsule, 500 MG PO BID, #14 CAP Prov:STEVENSON GONZALEZ MD 01/09/19 Reported Medications Quetiapine Fumarate* (Seroquel*) 400 Mg Tablet, 400 MG PO BID, TAB 01/19/19 Trazodone Hcl* (Trazodone Hcl*) 50 Mg Tablet, 50 MG PO BID, #60 TAB 01/16/19 Sertraline Hcl* (Sertraline Hcl*) 100 Mg Tablet, 100 MG PO QAM, #30 TAB 01/16/19 Sertraline Hcl* (Sertraline Hcl*) 50 Mg Tablet, 50 MG PO QPM, #30 TAB 01/16/19 Hydromorphone Hcl* (Hydromorphone Hcl*) 4 Mg Tablet, 4 MG PO Q4H PRN for PAIN, TAB 01/16/19 Diphenhydramine Hcl* (Benadryl*) 50 Mg Cap, 50 MG PO Q6 PRN for ITCHING, CAP 01/16/19 Ondansetron Hcl* (Ondansetron Hcl*) 8 Mg Tablet, 8 MG PO Q6H PRN for NAUSEA AND OR VOMITING, TAB 01/16/19 Folic Acid* (Folic Acid*) 1 Mg Tablet, 1 MG PO DAILY, TAB 01/16/19 Discontinued Reported Medications Iron,Carbonyl/Vit C/Vit B12/Fa (IRON 100 PLUS TABLET) 1 Each Tablet, 1 EACH PO, TAB 01/16/19 Primary Care Provider Care Physician No Primary Pending Labs Laboratory Tests Test 01/22/19 06:08 White Blood Count 4.5 10^3/ul (4.8-10.8) Red Blood Count 3.33 10^6/ul (4.20-5.40) Hemoglobin 7.6 g/dl (12.0-16.0) Hematocrit 25.6 % (37.0-47.0) Mean Corpuscular Volume 76.9 fl (82.0-101.0) Mean Corpuscular Hemoglobin 22.8 pg (29.0-33.0) Mean Corpuscular Hemoglobin Concent 29.7 g/dl (32.0-37.0) Red Cell Distribution Width 15.0 % (11.5-14.5) Platelet Count 254 10^3/UL (140-415) Mean Platelet Volume 9.8 fl (7.4-10.4) Immature Granulocytes % 0.200 % (0.001-0.429) Neutrophils % 45.9 % (39.0-77.0) Lymphocytes % 45.6 % (15.0-51.0) Monocytes % 4.3 % (0.0-11.0) Eosinophils % 3.6 % (0.0-7.0) Basophils % 0.4 % (0.0-2.0) Nucleated Red Blood Cells % 0.0 /100WBC (0.0-0.0) Immature Granulocytes # 0.010 10^3/ul (0.0-0.031) Neutrophils # 2.1 10^3/ul (1.6-7.5) Lymphocytes # 2.0 10^3/ul (0.8-2.9) Monocytes # 0.2 10^3/ul (0.3-0.9) Eosinophils # 0.2 10^3/ul (0.0-0.5) Basophils # 0.0 10^3/ul (0.0-0.1) Nucleated Red Blood Cells # 0.0 10^3/ul (0.0-0.0) RADHA MANNING MD Jan 22, 2019 13:54
== END 2019-01-22 14:25 | disposition home or self-care (01) | DRG 812 ==
LOC: E/R 09:21 → 2NE 11:34
PROVIDERS: ADMIT Hospitalist; ATTEND Internal Medicine
DX: D57.00 Hb-SS disease with crisis, unspecified (principal); F41.9 Anxiety disorder, unspecified; E07.81 Sick-euthyroid syndrome
CPT/HCPCS: 36415; 80048; 80053; 81025; 83735; 84703; 85025; 85045; 85610; 85730; 93970; 96372; J1170; J1200; J2405; J7030

== ENCOUNTER 2019-01-31 08:56 | Emergency (ER) | payer SELFPAY ==
[~2019-01-31] VITALS: Ht 167.6 cm; Wt 57.9 kg
[~2019-01-31 08:56] MED LIST changes: -IRON1TAB78 PO; +QUET400T PO
[2019-01-31 09:07] VITALS: Ht 167.6 cm; Wt 57.9 kg
[2019-01-31] MEDS ORDERED: HYDROmorphONE 2 MG/ML SYG IM STA ×2 (09:42→10:38)
[2019-01-31] MEDS ORDERED: OSEL75CA23 PO (11:10)
--- NOTE | 2019-01-31 11:23 | ERD ---
ER Documentation Chief Complaint Chief Complaint sickle cell total body pain x 2 days HPI 34-year-old female with a history of sickle cell disease tells me that she came to the emergency department because she got a cold over the last 2 days and she started having severe pain typical for her sickle cell disease. She has been using her medications as an outpatient without significant effect. Continues to have all of her pain. She denies any significant fevers sputum production, chest pain, difficulty breathing. Her pain is typical for her sickle cell disease. ROS All systems reviewed and are negative except as per history of present illness. Medications Home Meds Active Scripts Oseltamivir Phosphate* (Tamiflu*) 75 Mg Capsule, 75 MG PO BID for 5 Days, CAP Prov:AMANDA LARA 01/31/19 Hydroxyurea* (Hydroxyurea*) 500 Mg Capsule, 500 MG PO BID, #14 CAP Prov:STEVENSON GONZALEZ MD 01/09/19 Reported Medications Quetiapine Fumarate* (Seroquel*) 400 Mg Tablet, 400 MG PO BID, TAB 01/19/19 Trazodone Hcl* (Trazodone Hcl*) 50 Mg Tablet, 50 MG PO BID, #60 TAB 01/16/19 Sertraline Hcl* (Sertraline Hcl*) 100 Mg Tablet, 100 MG PO QAM, #30 TAB 01/16/19 Sertraline Hcl* (Sertraline Hcl*) 50 Mg Tablet, 50 MG PO QPM, #30 TAB 01/16/19 Hydromorphone Hcl* (Hydromorphone Hcl*) 4 Mg Tablet, 4 MG PO Q4H PRN for PAIN, TAB 01/16/19 Diphenhydramine Hcl* (Benadryl*) 50 Mg Cap, 50 MG PO Q6 PRN for ITCHING, CAP 01/16/19 Ondansetron Hcl* (Ondansetron Hcl*) 8 Mg Tablet, 8 MG PO Q6H PRN for NAUSEA AND OR VOMITING, TAB 01/16/19 Folic Acid* (Folic Acid*) 1 Mg Tablet, 1 MG PO DAILY, TAB 01/16/19 Allergies Allergies: Coded Allergies: ketorolac (Unverified Allergy, Unknown, HIVES, 01/31/19) morphine (Unverified Allergy, Unknown, HIVES, 01/31/19) prochlorperazine (Unverified Allergy, Unknown, HIVES, 01/31/19) haloperidol (Unverified Adverse Reaction, Unknown, 01/31/19) metoclopramide (Unverified Adverse Reaction, Unknown, 01/31/19) PMhx/Soc History of Surgery: Yes (c section, ovarian cysts, appendectomy) Anesthesia Reaction: No Hx Neurological Disorder: No Hx Respiratory Disorders: No Hx Cardiac Disorders: No Hx Psychiatric Problems: No Hx Miscellaneous Medical Probl: Yes (sickle cell) Hx Alcohol Use: No Hx Substance Use: Yes Hx Tobacco Use: No Smoking Status: Never smoker Physical Exam Vitals Vital Signs Date Temp Pulse Resp B/P (MAP) Pulse Ox O2 O2 Flow FiO2 Time Delivery Rate 01/31/19 97.7 83 17 123/69 99 09:07 (87) Physical Exam GENERAL: The patient is well developed and appropriate for usual state of health in no apparent distress. She appears comfortable and is texting HEENT: Pupils equal, round, and reactive to light. EOMI. There is no scleral icterus. NECK: C-spine is soft and supple, there is no meningismus. There is no cervical lymphadenopathy. LUNGS: Clear to auscultation bilaterally. There are no rales, wheezes or rhonchi. HEART: Regular rate and rhythm, no murmurs, clicks, rubs or gallops. ABDOMEN: Soft, non-tender, non-distended. There are bowel sounds in all four quadrants. No rebound or guarding. EXTREMITIES: There is no peripheral cyanosis or edema. No focal swelling or erythema. NEURO: The patient moves all four extremities with 5/5 strength. Cranial nerves II - XII are intact. Normal gait. Alert and oriented SKIN: There is no apparent rash or petechiae. HEME/LYMPHATIC: There is no evidence of excessive bruising or lymphedema. PSYCHIATRIC: The patient does not appear anxious or depressed. Results 24 hrs Current Medications Medications Dose Sig/Edmar Start Time Status Last (Trade) Ordered Route PRN Stop Time Admin Dose Reason Admin 1 mg ONCE STAT 01/31/19 DC 01/31/19 Hydromorphone IM 09:42 09:59 HCl 01/31/19 09:43 (Dilaudid) 1 mg ONCE STAT 01/31/19 DC 01/31/19 Hydromorphone IM 10:38 10:48 HCl 01/31/19 10:39 (Zoila) Procedures/MDM Patient was taken to a room, seen and examined Medical decision m[age]-year-old female presents to the emergency department with what appears to be a URI now sparking a sickle cell pain crisis. Patient has improved with IM pain medication. She does not appear to be toxic in any way or septic in any way. Patient will be discharged home for outpatient supportive care. I will be starting her empirically on influenza medication given her relative immunocompromise state. Departure Diagnosis: Primary Impression: Sickle cell anemia Condition: Good AMANDA LARA Jan 31, 2019 11:23
[2019-01-31 11:34] VITALS: BP 113/62; PULSE 65; RESP 17
== END 2019-01-31 11:37 | disposition home or self-care (01) ==
LOC: E/R 08:56
DX: D57.1 Sickle-cell disease without crisis (principal)
CPT/HCPCS: 96372; 99284; J1170

== ENCOUNTER 2019-02-07 18:31 | Inpatient (IN) | payer MEDICAID, OTHER ==
[~2019-02-07] VITALS: Ht 157.5 cm; Wt 58.3 kg
[~2019-02-07 18:31] MED LIST changes: +OSEL75CA23 PO
[2019-02-07 19:29] VITALS: Ht 157.5 cm; Wt 58.3 kg
[2019-02-07] MEDS ORDERED: HYDROmorphONE 1 MG/ML SYG IV STA (22:51)
[2019-02-07] MEDS ORDERED: ONDANSETRON 4 MG INJ IV STA (22:51)
[2019-02-07] MEDS ORDERED: SOD CHLORIDE 0.9% 1,000 ML IV STA (22:51)
[2019-02-07] MEDS ORDERED: DIPHENHYDRAMINE 50 MG INJ ONE (23:23)
[2019-02-08] MEDS ORDERED: HYDROmorphONE 0.5 MG/0.5 ML SYG IV STA ×2 (00:07→01:40)
[2019-02-08] MEDS ORDERED: DIPHENHYDRAMINE 50 MG INJ IV ONE ×2 (00:30)
[2019-02-08] MEDS ORDERED: DOCUSATE SODIUM 100 MG CAP PO PRN (02:00)
[2019-02-08] MEDS ORDERED: NACL 0.9% 3 ML SYG IV SCH (02:00)
[2019-02-08] MEDS ORDERED: ACETAMINOPHEN 325 MG TAB PO PRN (02:00)
[2019-02-08] MEDS ORDERED: BISACODYL (EC) 5 MG TAB PO PRN (02:00)
[2019-02-08] MEDS ORDERED: HYDROCODONE/APAP (5/325) TAB PO PRN (02:00)
[2019-02-08] MEDS ORDERED: DIPHENHYDRAMINE 50 MG CAP PO PRN (02:00)
--- NOTE | 2019-02-08 02:59 | ERD ---
ER Documentation Chief Complaint Chief Complaint COLD SYMPTOMS X 4 DAYS, BODY ACHES/PAIN X 2 DAYS HPI This is a very pleasant 34 female, with a body aches and pain for the past 2 days. She says is consistent with her sickle cell pain. Patient says she had a viral-like syndrome prior to that with a runny nose and cough before started getting severe body aches. Pain is mild to moderate in intensity. Denies chest pain. Denies shortness of breath. Denies any other current complaints. ROS All systems reviewed and are negative except as per history of present illness. Medications Home Meds Active Scripts Oseltamivir Phosphate* (Tamiflu*) 75 Mg Capsule, 75 MG PO BID for 5 Days, CAP Prov:AMANDA LARA 01/31/19 Hydroxyurea* (Hydroxyurea*) 500 Mg Capsule, 500 MG PO BID, #14 CAP Prov:STEVENSON GONZALEZ MD 01/09/19 Reported Medications Quetiapine Fumarate* (Seroquel*) 400 Mg Tablet, 400 MG PO BID, TAB 01/19/19 Trazodone Hcl* (Trazodone Hcl*) 50 Mg Tablet, 50 MG PO BID, #60 TAB 01/16/19 Sertraline Hcl* (Sertraline Hcl*) 100 Mg Tablet, 100 MG PO QAM, #30 TAB 01/16/19 Sertraline Hcl* (Sertraline Hcl*) 50 Mg Tablet, 50 MG PO QPM, #30 TAB 01/16/19 Hydromorphone Hcl* (Hydromorphone Hcl*) 4 Mg Tablet, 4 MG PO Q4H PRN for PAIN, TAB 01/16/19 Diphenhydramine Hcl* (Benadryl*) 50 Mg Cap, 50 MG PO Q6 PRN for ITCHING, CAP 01/16/19 Ondansetron Hcl* (Ondansetron Hcl*) 8 Mg Tablet, 8 MG PO Q6H PRN for NAUSEA AND OR VOMITING, TAB 01/16/19 Folic Acid* (Folic Acid*) 1 Mg Tablet, 1 MG PO DAILY, TAB 01/16/19 Allergies Allergies: Coded Allergies: ketorolac (Unverified Allergy, Unknown, HIVES, 01/31/19) morphine (Unverified Allergy, Unknown, HIVES, 01/31/19) prochlorperazine (Unverified Allergy, Unknown, HIVES, 01/31/19) haloperidol (Unverified Adverse Reaction, Unknown, 01/31/19) metoclopramide (Unverified Adverse Reaction, Unknown, 01/31/19) PMhx/Soc History of Surgery: Yes (c section, ovarian cysts, appendectomy) Anesthesia Reaction: No Hx Neurological Disorder: No Hx Respiratory Disorders: No Hx Cardiac Disorders: No Hx Psychiatric Problems: No Hx Miscellaneous Medical Probl: Yes (sickle cell) Hx Alcohol Use: No Hx Substance Use: Yes Hx Tobacco Use: No Smoking Status: Never smoker Physical Exam Vitals Vital Signs Date Temp Pulse Resp B/P (MAP) Pulse Ox O2 O2 Flow FiO2 Time Delivery Rate 02/08/19 98.0 72 16 115/80 100 Room Air 01:16 (92) 02/07/19 77 133/98 97 Room Air 23:27 (110) 02/07/19 98.0 75 16 129/64 100 19:29 (85) Physical Exam Const: No acute distress Head: Atraumatic Eyes: Normal Conjunctiva ENT: Normal External Ears, Nose and Mouth. Neck: Full range of motion. No meningismus. Resp: Clear to auscultation bilaterally Cardio: Regular rate and rhythm, no murmurs Abd: Soft, non tender, non distended. Normal bowel sounds Skin: No petechiae or rashes Back: No midline or flank tenderness Ext: No cyanosis, or edema Neur: Awake and alert Psych: Normal Mood and Affect Result Diagram: 02/07/19 2317 02/07/19 2317 Results 24 hrs Laboratory Tests Test 02/07/19 23:17 White Blood Count 7.7 10^3/ul Red Blood Count 3.84 10^6/ul Hemoglobin 8.6 g/dl Hematocrit 29.3 % Mean Corpuscular Volume 76.3 fl Mean Corpuscular Hemoglobin 22.4 pg Mean Corpuscular Hemoglobin Concent 29.4 g/dl Red Cell Distribution Width 15.3 % Platelet Count 316 10^3/UL Mean Platelet Volume 10.1 fl Immature Granulocytes % 0.400 % Neutrophils % 63.5 % Lymphocytes % 29.6 % Monocytes % 3.6 % Eosinophils % 2.6 % Basophils % 0.3 % Nucleated Red Blood Cells % 0.0 /100WBC Immature Granulocytes # 0.030 10^3/ul Neutrophils # 4.9 10^3/ul Lymphocytes # 2.3 10^3/ul Monocytes # 0.3 10^3/ul Eosinophils # 0.2 10^3/ul Basophils # 0.0 10^3/ul Nucleated Red Blood Cells # 0.0 10^3/ul Absolute Reticulocyte Count 0.082 X10^6 Percent Reticulocyte Count 2.1 % Sodium Level 142 mmol/L Potassium Level 3.8 mmol/L Chloride Level 101 mmol/L Carbon Dioxide Level 25 mmol/L Anion Gap 16 Blood Urea Nitrogen 10 mg/dl Creatinine 0.61 mg/dl Est Glomerular Filtrat Rate mL/min > 60 mL/min Glucose Level 164 mg/dl Calcium Level 9.3 mg/dl Total Bilirubin 0.1 mg/dl Direct Bilirubin 0.00 mg/dl Indirect Bilirubin 0.1 mg/dl Aspartate Amino Transf (AST/SGOT) 29 IU/L Alanine Aminotransferase (ALT/SGPT) 6 IU/L Alkaline Phosphatase 106 IU/L Lactate Dehydrogenase 462 IU/L Total Protein 7.9 g/dl Albumin 4.3 g/dl Globulin 3.60 g/dl Albumin/Globulin Ratio 1.19 Lipase 129 U/L Current Medications Medications Dose Sig/[place] Start Time Status Last (Trade) Ordered Route PRN Stop Time Admin Dose Reason Admin Sodium 1,000 ml @ Q1H STAT 02/07/19 DC 02/07/19 Chloride 1,000 mls/hr IV 22:51 23:16 02/07/19 23:50 1 mg ONCE STAT 02/07/19 DC 02/07/19 Hydromorphone IV 22:51 23:16 HCl 02/07/19 22:52 (Dilaudid) Ondansetron 4 mg ONCE STAT 02/07/19 DC 02/07/19 HCl (Zofran IV 22:51 23:15 Inj) 02/07/19 22:52 50 mg STK-MED 02/07/19 DC Diphenhydrami ONCE .ROUTE 23:23 ne HCl 02/07/19 23:24 (Benadryl) 25 mg ONCE ONCE 02/08/19 DC 02/08/19 Diphenhydrami IV 00:00 00:13 ne HCl 02/08/19 00:01 (Benadryl) 1 mg ONCE STAT 02/08/19 DC 02/08/19 Hydromorphone IV 00:07 00:13 HCl 02/08/19 00:08 (Dilaudid) 25 mg ONCE ONCE 02/08/19 DC 02/08/19 Diphenhydrami IV 00:30 00:02 ne HCl 02/08/19 00:31 (Benadryl) 1 mg ONCE STAT 02/08/19 DC 02/08/19 Hydromorphone IV 01:40 01:49 HCl 02/08/19 01:41 (Dilaudid) 50 mg Q6 PRN PO 02/08/19 DC Diphenhydrami ITCHING 02:00 ne HCl 02/08/19 02:01 (Benadryl) Folic Acid 1 mg DAILY PO 02/08/19 (Folic Acid) 09:00 Hydroxyurea 500 mg BID PO 02/08/19 (Hydrea) 02:00 Quetiapine 400 mg BID PO 02/08/19 Fumarate 09:00 (Seroquel) Sertraline 50 mg QPM PO 02/08/19 HCl 21:00 (Zoloft) Sertraline 100 mg QAM PO 02/08/19 HCl 09:00 (Zoloft) Trazodone 50 mg BID PO 02/08/19 HCl 02:00 (Desyrel) Sodium 1,000 ml @ Q8H IV 02/08/19 Chloride 125 mls/hr 01:45 IV Flush 3 ml PER 02/08/19 (NS 3 ml) PROTOCOL IV 02:00 Ondansetron 4 mg Q6H PRN 02/08/19 HCl (Zofran IV 02:00 Inj) NAUSEA/VOMITI NG 650 mg Q6H PRN 02/08/19 Acetaminophen PO .PAIN 1-3 02:00 (Tylenol OR TEMP Tab) 1 tab Q6H PRN 02/08/19 Acetaminophen PO .MOD PAIN 02:00 / 4-6 Hydrocodone Bitart ([place] (5/325)) 1 mg Q4H PRN 02/08/19 Hydromorphone IV .SEVERE 02:00 HCl PAIN 7-10 (Dilaudid) Docusate 100 mg Q12H PRN 02/08/19 Sodium PO 02:00 (Colace) .CONSTIPATION Bisacodyl 5 mg DAILY PRN 02/08/19 (Dulcolax) PO 02:00 .CONSTIPATION Enoxaparin 40 mg DAILY SC 02/08/19 Sodium 09:00 (Lovenox) 50 mg Q6H PRN 02/08/19 Diphenhydrami PO ITCHING 02:00 ne HCl (Benadryl) Procedures/MDM Medical decision making: This is a 34-year-old female with history of sickle cell disease acute colectomy with severe sickle cell pain syndrome. She is getting received multiple doses of parenteral narcotic medication along with fluid hydration without relief. Patient will be admitted for further evaluation and management to Dr. Durand who is the on-call hospitalist Departure Diagnosis: Primary Impression: Sickle cell pain crisis Condition: CAILIN García Feb 08, 2019 02:59
[2019-02-08] MEDS: HYDROmorphONE 0.5 MG/0.5 ML SYG IV PRN ×4 (03:29→21:23)
[2019-02-08] MEDS ORDERED: HYDROmorphONE 2 MG/ML SYG IV ONE ×2 (04:52→21:00)
[2019-02-08] MEDS: SOD CHLORIDE 0.9% 1,000 ML IV SCH ×3 (04:57→19:47)
[2019-02-08] MEDS: traZODone 50 MG TAB PO SCH ×3 (06:46→21:23)
[2019-02-08] MEDS: HYDROXYUREA 500 MG CAP PO SCH ×3 (06:47→21:27)
[2019-02-08] MEDS: ONDANSETRON 4 MG INJ IV PRN ×2 (07:16→16:57)
[2019-02-08] MEDS: DIPHENHYDRAMINE 50 MG CAP PO PRN ×2 (07:16→16:57)
--- NOTE | 2019-02-08 07:30 | HP ---
Date/Time of Note Date/Time of Note DATE: 02/08/19 TIME: 07:22 Assessment/Plan VTE Prophylaxis SCD contraindicated: low risk/ambulating Pharmacological prophylaxis: LMWH Lines/Catheters IV Catheter Type (from Nrsg): Mid Line Assessment/Plan Hospital Course This is a 34-year-old female being admitted to the [facility] floor for: 1. Sickle cell pain crisis. Patient does have apparently viral syndrome, will check influenza panel. -IV fluid hydration with normal saline 125 cc an hour -We will give IV Dilaudid as needed, IV fluids 2. Sickle cell anemia -Stable H&H, not requiring transfusion of blood products at this time. -Resume hydroxyurea. -Continue to monitor. 3. Anxiety/sleep disorders. -Resume home medications. DVT GI prophylaxis: Lovenox, no GI prophylaxis indicated Further treatment strategy will be implemented as per the clinical course. Result Diagram: 02/08/19 0534 02/08/19 0534 Results 24hrs Laboratory Tests Test 02/07/19 23:00 02/07/19 23:17 02/08/19 05:34 Serum HCG, Qualitative NEGATIVE White Blood Count 7.7 # 8.7 Red Blood Count 3.84 L 3.52 L Hemoglobin 8.6 L 8.0 L Hematocrit 29.3 L 26.9 L Mean Corpuscular Volume 76.3 L 76.4 L Mean Corpuscular Hemoglobin 22.4 L 22.7 L Mean Corpuscular Hemoglobin Concent 29.4 L 29.7 L Red Cell Distribution Width 15.3 H 15.1 H Platelet Count 316 # 332 Mean Platelet Volume 10.1 9.9 Immature Granulocytes % 0.400 0.300 Neutrophils % 63.5 48.9 Lymphocytes % 29.6 41.5 Monocytes % 3.6 5.7 Eosinophils % 2.6 3.0 Basophils % 0.3 0.6 Nucleated Red Blood Cells % 0.0 0.0 Immature Granulocytes # 0.030 0.030 Neutrophils # 4.9 4.3 Lymphocytes # 2.3 3.6 H Monocytes # 0.3 0.5 Eosinophils # 0.2 0.3 Basophils # 0.0 0.1 Nucleated Red Blood Cells # 0.0 0.0 Absolute Reticulocyte Count 0.082 Percent Reticulocyte Count 2.1 H Sodium Level 142 144 Potassium Level 3.8 3.6 Chloride Level 101 108 Carbon Dioxide Level 25 25 Anion Gap 16 H 11 Blood Urea Nitrogen 10 12 Creatinine 0.61 0.81 Est Glomerular Filtrat Rate mL/min > 60 > 60 Glucose Level 164 111 # Calcium Level 9.3 8.6 Total Bilirubin 0.1 L 0.0 L Direct Bilirubin 0.00 0.00 Indirect Bilirubin 0.1 0.0 Aspartate Amino Transf (AST/SGOT) 29 22 Alanine Aminotransferase (ALT/SGPT) 6 L 11 L Alkaline Phosphatase 106 94 Lactate Dehydrogenase 462 Total Protein 7.9 7.0 Albumin 4.3 3.6 Globulin 3.60 H 3.40 H Albumin/Globulin Ratio 1.19 1.05 Lipase 129 HPI/ROS Admit Date/Time Admit Date/Time Hx of Present Illness Chief complaint: Body aches times 5 days, cough This is a very pleasant 34 female, with a body aches and pain for the past 5 days. She says is consistent with her sickle cell pain. Patient says she had a viral-like syndrome prior to that with a runny nose and cough before started getting severe body aches. Pain is mild to moderate in intensity. Denies chest pain. She denies any fevers. Denies shortness of breath. Denies any other current complaints. Allergies: Multiple allergies see MAR Medications: See MAR ROS Const: As per HPI Eyes : No pain discharge or redness or change in visual acuity ENT: As per HPI Respiratory: As per HPI Cardiovascular: No chest pain, palpitation, PND, or edema GI : no change in appetite, abdominal pain, nausea, vomiting, diarrhea, constipation, or change in the color his stool Genitourinary: No dysuria, hematuria, flank pain , discharge or CVA tenderness Musculoskeletal: As per HPI Skin: No rash, bruising or hives Neuro: No headache, dizziness, syncope, seizure, focal weakness Endocrine: No polyuria, polydipsia, temperature intolerance Psych: No hallucination, depression, anxiety or suicidal ideation PMH/Family/Social Past Medical History sickle cell anemia, anxiety/sleep disorders, asthma Medications Current Medications Folic Acid (Folic Acid) 1 mg DAILY PO ; Start 02/08/19 at 09:00 Hydroxyurea (Hydrea) 500 mg BID PO ; Start 02/08/19 at 02:00 Quetiapine Fumarate (Seroquel) 400 mg BID PO ; Start 02/08/19 at 09:00 Sertraline HCl (Zoloft) 50 mg QPM PO ; Start 02/08/19 at 21:00 Sertraline HCl (Zoloft) 100 mg QAM PO ; Start 02/08/19 at 09:00 Trazodone HCl (Desyrel) 50 mg BID PO ; Start 02/08/19 at 02:00 Sodium Chloride 1,000 ml @ 125 mls/hr Q8H IV Last administered on 02/08/19at 04:57; Admin Dose 125 MLS/HR; Start 02/08/19 at 01:45 IV Flush (NS 3 ml) 3 ml PER PROTOCOL IV ; Start 02/08/19 at 02:00 Ondansetron HCl (Zofran Inj) 4 mg Q6H PRN IV NAUSEA/VOMITING Last administered on 02/08/19at 07:16; Admin Dose 4 MG; Start 02/08/19 at 02:00 Acetaminophen (Tylenol Tab) 650 mg Q6H PRN PO .PAIN 1-3 OR TEMP; Start 02/08/19 at 02:00 Acetaminophen/ Hydrocodone Bitart ([place] (5/325)) 1 tab Q6H PRN PO .MOD PAIN 4- 6; Start 02/08/19 at 02:00 Hydromorphone HCl (Dilaudid) 1 mg Q4H PRN IV .SEVERE PAIN 7-10 Last administered on 02/08/19at 07:16; Admin Dose 1 MG; Start 02/08/19 at 02:00 Docusate Sodium (Colace) 100 mg Q12H PRN PO .CONSTIPATION; Start 02/08/19 at 02:00 Bisacodyl (Dulcolax) 5 mg DAILY PRN PO .CONSTIPATION; Start 02/08/19 at 02:00 Enoxaparin Sodium (Lovenox) 40 mg DAILY SC ; Start 02/08/19 at 09:00 Diphenhydramine HCl (Benadryl) 50 mg Q6H PRN PO ITCHING Last administered on 02/08/19at 07:16; Admin Dose 50 MG; Start 02/08/19 at 02:00 Coded Allergies: ketorolac (Unverified Allergy, Unknown, HIVES, 01/31/19) morphine (Unverified Allergy, Unknown, HIVES, 01/31/19) prochlorperazine (Unverified Allergy, Unknown, HIVES, 01/31/19) haloperidol (Unverified Adverse Reaction, Unknown, 01/31/19) metoclopramide (Unverified Adverse Reaction, Unknown, 01/31/19) Past Surgical History x2, partial splenectomy, appendectomy, bilateral ovarian cyst removal Family History Significant Family History: no pertinent family hx Social History Alcohol Use: none Smoking Status: Never smoker Drug Use: none Exam/Review of Systems Vital Signs Vitals Vital Signs Date Temp Pulse Resp B/P (MAP) Pulse Ox O2 O2 Flow FiO2 Time Delivery Rate 02/08/19 98.1 74 18 110/79 99 Room Air 05:00 (89) Exam Exam General: Patient is currently lying in bed she does appear to be in moderate distress from pain HEENT: Atraumatic, normocephalic. The pupils are equal, round and reactive. Extraocular motor are intact Neck: Supple with full range of motion. No rigidity or meningismus Chest: Nontender Lungs: Clear to auscultation bilaterally no crackles rales or wheezing Heart: Normal S1-S2, Regular rhythm and rate. Abdomen: Soft , nontender, nondistended , bowel sounds are present. No guarding no rebound tenderness , No masses or organomegaly. No costovertebral temporal angle mass Extremities: Normal to inspection, no edema no cyanosis Neurologic: Normal mental status, speech normal, cranial nerves II through XII are intact, motor and sensory are intact, HODA JOHN Feb 08, 2019 07:29
[2019-02-08] MEDS ORDERED: ENOXAPARIN 40 MG/0.4 ML SYG SC SCH (09:00)
[2019-02-08] MEDS ORDERED: SERTRALINE 100 MG TAB PO SCH (09:00)
[2019-02-08] MEDS ORDERED: FOLIC ACID 1 MG TAB PO SCH (09:00)
[2019-02-08] MEDS ORDERED: OSELTAMIVIR 75 MG CAP PO SCH (09:00)
[2019-02-08] MEDS ORDERED: HYDROmorphONE 1 MG/ML SYG IV ONE (09:30)
[2019-02-08] MEDS: QUETIAPINE 100 MG TAB PO SCH ×2 (09:51→21:23)
--- NOTE | 2019-02-08 13:36 | PN ---
Date/Time of Note Date/Time of Note DATE: 02/08/19 TIME: 13:35 Assessment/Plan VTE Prophylaxis SCD applied (from Nsg): Yes Pharmacological prophylaxis: heparin Lines/Catheters IV Catheter Type (from Nrsg): Mid Line Assessment/Plan Hospital Course 34 yo female with SCD here for pain crisis - Contiue IVF - Continue pain control - Dr Salgado consulted - Continue hydroxyurea Result Diagram: 02/08/19 0534 02/08/19 0534 Results 24hrs Laboratory Tests Test 02/07/19 23:00 02/07/19 23:17 02/08/19 05:34 Serum HCG, Qualitative NEGATIVE White Blood Count 7.7 # 8.7 Red Blood Count 3.84 L 3.52 L Hemoglobin 8.6 L 8.0 L Hematocrit 29.3 L 26.9 L Mean Corpuscular Volume 76.3 L 76.4 L Mean Corpuscular Hemoglobin 22.4 L 22.7 L Mean Corpuscular Hemoglobin Concent 29.4 L 29.7 L Red Cell Distribution Width 15.3 H 15.1 H Platelet Count 316 # 332 Mean Platelet Volume 10.1 9.9 Immature Granulocytes % 0.400 0.300 Neutrophils % 63.5 48.9 Lymphocytes % 29.6 41.5 Monocytes % 3.6 5.7 Eosinophils % 2.6 3.0 Basophils % 0.3 0.6 Nucleated Red Blood Cells % 0.0 0.0 Immature Granulocytes # 0.030 0.030 Neutrophils # 4.9 4.3 Lymphocytes # 2.3 3.6 H Monocytes # 0.3 0.5 Eosinophils # 0.2 0.3 Basophils # 0.0 0.1 Nucleated Red Blood Cells # 0.0 0.0 Absolute Reticulocyte Count 0.082 Percent Reticulocyte Count 2.1 H Sodium Level 142 144 Potassium Level 3.8 3.6 Chloride Level 101 108 Carbon Dioxide Level 25 25 Anion Gap 16 H 11 Blood Urea Nitrogen 10 12 Creatinine 0.61 0.81 Est Glomerular Filtrat Rate mL/min > 60 > 60 Glucose Level 164 111 # Calcium Level 9.3 8.6 Total Bilirubin 0.1 L 0.0 L Direct Bilirubin 0.00 0.00 Indirect Bilirubin 0.1 0.0 Aspartate Amino Transf (AST/SGOT) 29 22 Alanine Aminotransferase (ALT/SGPT) 6 L 11 L Alkaline Phosphatase 106 94 Lactate Dehydrogenase 462 Total Protein 7.9 7.0 Albumin 4.3 3.6 Globulin 3.60 H 3.40 H Albumin/Globulin Ratio 1.19 1.05 Lipase 129 Subjective 24 Hr Interval Summary Free Text/Dictation Pain seems controlled, however patient continues to request dilaudid Exam/Review of Systems Exam Vitals Vital Signs Date Temp Pulse Resp B/P (MAP) Pulse Ox O2 O2 Flow FiO2 Time Delivery Rate 02/08/19 98.5 101 17 106/67 100 Room Air 07:27 (80) Constitutional: alert, oriented, well developed Psych: no complaints, nl mood/affect Head: normocephalic, atraumatic Eyes: nl conjunctiva, EOMI, nl lids, nl sclera, PERRL ENMT: nl external ears & nose, nl lips & teeth, nl nasal mucosa & septum Neck: supple, non-tender Respiratory: clear to auscultation, normal air movement Cardiovascular: regular rate and rhythm, nl pulses Gastrointestinal: soft, nl liver, spleen, non-tender Musculoskeletal: nl extremities to inspection, nl gait and stance Extremities: normal pulses Neurological: MANAGER ETL II-XII intact, nl mental status, nl speech, nl strength Skin: nl turgor; No rash or lesions Lymph: nl lymph nodes Results Results 24hrs Laboratory Tests Test 02/07/19 23:00 02/07/19 23:17 02/08/19 05:34 Serum HCG, Qualitative NEGATIVE White Blood Count 7.7 # 8.7 Red Blood Count 3.84 L 3.52 L Hemoglobin 8.6 L 8.0 L Hematocrit 29.3 L 26.9 L Mean Corpuscular Volume 76.3 L 76.4 L Mean Corpuscular Hemoglobin 22.4 L 22.7 L Mean Corpuscular Hemoglobin Concent 29.4 L 29.7 L Red Cell Distribution Width 15.3 H 15.1 H Platelet Count 316 # 332 Mean Platelet Volume 10.1 9.9 Immature Granulocytes % 0.400 0.300 Neutrophils % 63.5 48.9 Lymphocytes % 29.6 41.5 Monocytes % 3.6 5.7 Eosinophils % 2.6 3.0 Basophils % 0.3 0.6 Nucleated Red Blood Cells % 0.0 0.0 Immature Granulocytes # 0.030 0.030 Neutrophils # 4.9 4.3 Lymphocytes # 2.3 3.6 H Monocytes # 0.3 0.5 Eosinophils # 0.2 0.3 Basophils # 0.0 0.1 Nucleated Red Blood Cells # 0.0 0.0 Absolute Reticulocyte Count 0.082 Percent Reticulocyte Count 2.1 H Sodium Level 142 144 Potassium Level 3.8 3.6 Chloride Level 101 108 Carbon Dioxide Level 25 25 Anion Gap 16 H 11 Blood Urea Nitrogen 10 12 Creatinine 0.61 0.81 Est Glomerular Filtrat Rate mL/min > 60 > 60 Glucose Level 164 111 # Calcium Level 9.3 8.6 Total Bilirubin 0.1 L 0.0 L Direct Bilirubin 0.00 0.00 Indirect Bilirubin 0.1 0.0 Aspartate Amino Transf (AST/SGOT) 29 22 Alanine Aminotransferase (ALT/SGPT) 6 L 11 L Alkaline Phosphatase 106 94 Lactate Dehydrogenase 462 Total Protein 7.9 7.0 Albumin 4.3 3.6 Globulin 3.60 H 3.40 H Albumin/Globulin Ratio 1.19 1.05 Lipase 129 Medications Medication Current Medications Folic Acid (Folic Acid) 1 mg DAILY PO Last administered on 02/08/19 09:50; Admin Dose 1 MG; Start 02/08/19 at 09:00 Hydroxyurea (Hydrea) 500 mg BID PO Last administered on 02/08/19at 13:20; Admin Dose 500 MG; Start 02/08/19 at 02:00 Quetiapine Fumarate (Seroquel) 400 mg BID PO Last administered on 02/08/19 09:51; Admin Dose 400 MG; Start 02/08/19 at 09:00 Sertraline HCl (Zoloft) 50 mg QPM PO ; Start 02/08/19 at 21:00 Sertraline HCl (Zoloft) 100 mg QAM PO Last administered on 02/08/19 09:51; Admin Dose 100 MG; Start 02/08/19 at 09:00 Trazodone HCl (Desyrel) 50 mg BID PO Last administered on 02/08/19 09:50; Admin Dose 50 MG; Start 02/08/19 at 02:00 Sodium Chloride 1,000 ml @ 125 mls/hr Q8H IV Last administered on 02/08/19at 11:18; Admin Dose 125 MLS/HR; Start 02/08/19 at 01:45 IV Flush (NS 3 ml) 3 ml PER PROTOCOL IV ; Start 02/08/19 at 02:00 Ondansetron HCl (Zofran Inj) 4 mg Q6H PRN IV NAUSEA/VOMITING Last administered on 02/08/19at 07:16; Admin Dose 4 MG; Start 02/08/19 at 02:00 Acetaminophen (Tylenol Tab) 650 mg Q6H PRN PO .PAIN 1-3 OR TEMP; Start 02/08/19 at 02:00 Acetaminophen/ Hydrocodone Bitart ([place] (5/325)) 1 tab Q6H PRN PO .MOD PAIN 4- 6; Start 02/08/19 at 02:00 Hydromorphone HCl (Dilaudid) 1 mg Q4H PRN IV .SEVERE PAIN 7-10 Last administered on 02/08/19at 07:16; Admin Dose 1 MG; Start 02/08/19 at 02:00 Docusate Sodium (Colace) 100 mg Q12H PRN PO .CONSTIPATION; Start 02/08/19 at 02:00 Bisacodyl (Dulcolax) 5 mg DAILY PRN PO .CONSTIPATION; Start 02/08/19 at 02:00 Enoxaparin Sodium (Lovenox) 40 mg DAILY SC ; Start 02/08/19 at 09:00 Diphenhydramine HCl (Benadryl) 50 mg Q6H PRN PO ITCHING Last administered on 02/08/19at 07:16; Admin Dose 50 MG; Start 02/08/19 at 02:00 RADHA MANNING MD Feb 08, 2019 13:36
[2019-02-08 15:04] VITALS: BP 107/73; PULSE 79; RESP 16
[2019-02-08 19:25] VITALS: BP 108/62; PULSE 68; RESP 20
[2019-02-08] MEDS ORDERED: SERTRALINE 50 MG TAB PO SCH (21:00)
[2019-02-08] MEDS ORDERED: HYDROmorphONE 2 MG TAB PO ONE (21:00)
[2019-02-09] MEDS: HYDROmorphONE 0.5 MG/0.5 ML SYG IV PRN ×2 (00:59→04:50)
[2019-02-09] MEDS: SOD CHLORIDE 0.9% 1,000 ML IV SCH (01:45)
[2019-02-09 02:00] VITALS: BP 109/69; PULSE 79; RESP 20
--- NOTE | 2019-02-09 07:14 | CONS ---
Consultation Date/Type/Reason Admit Date/Time Date/Time of Note DATE: 02/09/19 TIME: 07:13 Hx of Present Illness I was asked to see this 34-year-old female with a history of sickle cell pain crisis. Patient denied any prodromal symptoms just prior to the time that she was admitted to medical record. She states she was on hydroxyurea. And that she had anxiety disorder. On admission she was noticed noted to be a very pleasant 34-year-old patient who was complaining of total body pain for the last 5 days prior to this hospitalization she stated her pain was consistent with her prior admissions that she has had some modest upper respiratory complaints. Was called to see patient to help with her pain management symptoms. When I arrived at the room patient was in the bathroom and she had been placed in the room with another patient I was following no had sickle cell crisis also. I left to speak to the nursing staff and asked that the patient be moved to a different bed. The reasons that my concern that both patients would share information on their disease process which I was less concerned about rather than their treatment and comparison thereafter. Patient in bed 1 from a psychological standpoint this I felt would complicate the treatment plan for patient #2 the new patient I was to consult on. I went back to examine patient Caryn Camejo and found that she was still in the restroom this was some 45 minutes later. I asked nursing staff to ask her to come out so I could examine her. Nursing staff was still looking for a place to transfer patient my concern was as above examining to patient's in the same room same time with one patient having significant psychiatric anxiety disorder. And I was concerned that patient that I would be newly examining was in the bathroom for prolonged period of time and possibly using another substance. I left waiting for the nursing staff to make the bed change reviewing medical records patient became more difficult as the evening went on and he demanded higher doses of pain control medication and IV Benadryl. This is appropriately refused by the on-call physicians and after patient was spoken with by the on-call executive director of nursing and large nurse she decided to leave AGAINST MEDICAL ADVICE. At no time in the course of her hospitalization was I able to the do a thorough examination on this patient. Past Medical History Home Meds Active Scripts Oseltamivir Phosphate* (Tamiflu*) 75 Mg Capsule, 75 MG PO BID for 5 Days, CAP Prov:AMANDA LARA 01/31/19 Hydroxyurea* (Hydroxyurea*) 500 Mg Capsule, 500 MG PO BID, #14 CAP Prov:STEVENSON GONZALEZ MD 01/09/19 Reported Medications Quetiapine Fumarate* (Seroquel*) 400 Mg Tablet, 400 MG PO BID, TAB 01/19/19 Trazodone Hcl* (Trazodone Hcl*) 50 Mg Tablet, 50 MG PO BID, #60 TAB 01/16/19 Sertraline Hcl* (Sertraline Hcl*) 100 Mg Tablet, 100 MG PO QAM, #30 TAB 01/16/19 Sertraline Hcl* (Sertraline Hcl*) 50 Mg Tablet, 50 MG PO QPM, #30 TAB 01/16/19 Hydromorphone Hcl* (Hydromorphone Hcl*) 4 Mg Tablet, 4 MG PO Q4H PRN for PAIN, TAB 01/16/19 Diphenhydramine Hcl* (Benadryl*) 50 Mg Cap, 50 MG PO Q6 PRN for ITCHING, CAP 01/16/19 Ondansetron Hcl* (Ondansetron Hcl*) 8 Mg Tablet, 8 MG PO Q6H PRN for NAUSEA AND OR VOMITING, TAB 01/16/19 Folic Acid* (Folic Acid*) 1 Mg Tablet, 1 MG PO DAILY, TAB 01/16/19 Allergies: Coded Allergies: ketorolac (Unverified Allergy, Unknown, HIVES, 01/31/19) morphine (Unverified Allergy, Unknown, HIVES, 01/31/19) prochlorperazine (Unverified Allergy, Unknown, HIVES, 01/31/19) haloperidol (Unverified Adverse Reaction, Unknown, 01/31/19) metoclopramide (Unverified Adverse Reaction, Unknown, 01/31/19) Social History Alcohol Use: none Smoking Status: Never smoker Drug Use: none Exam/Review of Systems Exam Vitals Vital Signs Date Temp Pulse Resp B/P (MAP) Pulse Ox O2 O2 Flow FiO2 Time Delivery Rate 02/09/19 98.6 79 20 109/69 99 Room Air 02:00 (82) Intake and Output 02/08/19 02/08/19 02/09/19 1515:00 23:00 07:00 IntakeIntake Total 260 ml 1000 ml 1070 ml BalanceBalance 260 ml 1000 ml 1070 ml Results Result Diagram: 02/09/19 0500 02/09/19 0500 Results 24hrs Laboratory Tests Test 02/09/19 05:00 White Blood Count 6.2 # Red Blood Count 3.17 L Hemoglobin 7.2 L Hematocrit 24.6 L Mean Corpuscular Volume 77.6 L Mean Corpuscular Hemoglobin 22.7 L Mean Corpuscular Hemoglobin Concent 29.3 L Red Cell Distribution Width 15.1 H Platelet Count 300 Mean Platelet Volume 10.4 Immature Granulocytes % 0.300 Neutrophils % 49.6 Lymphocytes % 39.2 Monocytes % 6.4 Eosinophils % 4.0 Basophils % 0.5 Nucleated Red Blood Cells % 0.0 Immature Granulocytes # 0.020 Neutrophils # 3.1 Lymphocytes # 2.4 Monocytes # 0.4 Eosinophils # 0.3 Basophils # 0.0 Nucleated Red Blood Cells # 0.0 Sodium Level 141 Potassium Level 4.3 Chloride Level 109 Carbon Dioxide Level 26 Anion Gap 6 Blood Urea Nitrogen 9 Creatinine 0.61 Est Glomerular Filtrat Rate mL/min > 60 Glucose Level 90 Calcium Level 8.8 Total Bilirubin 0.0 L Direct Bilirubin 0.00 Indirect Bilirubin 0.0 Aspartate Amino Transf (AST/SGOT) 24 Alanine Aminotransferase (ALT/SGPT) 14 Alkaline Phosphatase 73 Total Protein 6.1 Albumin 3.1 L Globulin 3.00 Albumin/Globulin Ratio 1.03 TALI FUCHS Feb 09, 2019 07:14
--- NOTE | 2019-02-09 11:38 | DS ---
Date/Time of Note Date/Time of Note DATE: 02/09/19 TIME: 11:38 Discharge Summary Admission/Discharge Info Admit Date/Time Feb 08, 2019 at 02:05 Discharge Date/Time Feb 09, 2019 at 05:50 Discharge Diagnosis SCD Patient Condition: Stable Hospital Course 34 yo female with SCD here for pain crisis She was treated with IV fluids and analgesics She left the hospital this morning prior to my evaluation Home Meds Active Scripts Oseltamivir Phosphate* (Tamiflu*) 75 Mg Capsule, 75 MG PO BID for 5 Days, CAP Prov:AMANDA LARA 01/31/19 Hydroxyurea* (Hydroxyurea*) 500 Mg Capsule, 500 MG PO BID, #14 CAP Prov:STEVENSON GONZALEZ MD 01/09/19 Reported Medications Quetiapine Fumarate* (Seroquel*) 400 Mg Tablet, 400 MG PO BID, TAB 01/19/19 Trazodone Hcl* (Trazodone Hcl*) 50 Mg Tablet, 50 MG PO BID, #60 TAB 01/16/19 Sertraline Hcl* (Sertraline Hcl*) 100 Mg Tablet, 100 MG PO QAM, #30 TAB 01/16/19 Sertraline Hcl* (Sertraline Hcl*) 50 Mg Tablet, 50 MG PO QPM, #30 TAB 01/16/19 Hydromorphone Hcl* (Hydromorphone Hcl*) 4 Mg Tablet, 4 MG PO Q4H PRN for PAIN, TAB 01/16/19 Diphenhydramine Hcl* (Benadryl*) 50 Mg Cap, 50 MG PO Q6 PRN for ITCHING, CAP 01/16/19 Ondansetron Hcl* (Ondansetron Hcl*) 8 Mg Tablet, 8 MG PO Q6H PRN for NAUSEA AND OR VOMITING, TAB 01/16/19 Folic Acid* (Folic Acid*) 1 Mg Tablet, 1 MG PO DAILY, TAB 01/16/19 Primary Care Provider Care Physician No Primary Pending Labs Laboratory Tests Test 02/09/19 05:00 White Blood Count 6.2 10^3/ul (4.8-10.8) Red Blood Count 3.17 10^6/ul (4.20-5.40) Hemoglobin 7.2 g/dl (12.0-16.0) Hematocrit 24.6 % (37.0-47.0) Mean Corpuscular Volume 77.6 fl (82.0-101.0) Mean Corpuscular Hemoglobin 22.7 pg (29.0-33.0) Mean Corpuscular Hemoglobin Concent 29.3 g/dl (32.0-37.0) Red Cell Distribution Width 15.1 % (11.5-14.5) Platelet Count 300 10^3/UL (140-415) Mean Platelet Volume 10.4 fl (7.4-10.4) Immature Granulocytes % 0.300 % (0.001-0.429) Neutrophils % 49.6 % (39.0-77.0) Lymphocytes % 39.2 % (15.0-51.0) Monocytes % 6.4 % (0.0-11.0) Eosinophils % 4.0 % (0.0-7.0) Basophils % 0.5 % (0.0-2.0) Nucleated Red Blood Cells % 0.0 /100WBC (0.0-0.0) Immature Granulocytes # 0.020 10^3/ul (0.0-0.031) Neutrophils # 3.1 10^3/ul (1.6-7.5) Lymphocytes # 2.4 10^3/ul (0.8-2.9) Monocytes # 0.4 10^3/ul (0.3-0.9) Eosinophils # 0.3 10^3/ul (0.0-0.5) Basophils # 0.0 10^3/ul (0.0-0.1) Nucleated Red Blood Cells # 0.0 10^3/ul (0.0-0.0) Sodium Level 141 mmol/L (135-144) Potassium Level 4.3 mmol/L (3.5-5.1) Chloride Level 109 mmol/L (97-110) Carbon Dioxide Level 26 mmol/L (21-31) Anion Gap 6 (5-13) Blood Urea Nitrogen 9 mg/dl (7-20) Creatinine 0.61 mg/dl (0.44-1.00) Est Glomerular Filtrat Rate mL/min > 60 mL/min (>60) Glucose Level 90 mg/dl (70-220) Calcium Level 8.8 mg/dl (8.4-10.2) Total Bilirubin 0.0 mg/dl (0.2-1.3) Direct Bilirubin 0.00 mg/dl (0.00-0.20) Indirect Bilirubin 0.0 mg/dl (0-1.1) Aspartate Amino Transf (AST/SGOT) 24 IU/L (15-46) Alanine Aminotransferase (ALT/SGPT) 14 IU/L (13-69) Alkaline Phosphatase 73 IU/L (42-121) Total Protein 6.1 g/dl (6.1-8.1) Albumin 3.1 g/dl (3.3-4.9) Globulin 3.00 g/dl (1.3-3.2) Albumin/Globulin Ratio 1.03 RADHA MANNING MD Feb 09, 2019 11:38
== END 2019-02-09 05:50 | disposition left against medical advice (07) | DRG 812 ==
LOC: E/R 18:31 → MS1 02-08 01:44 → OBSVTOIN 02-08 02:05
PROVIDERS: ADMIT Family Medicine; ATTEND Family Medicine
DX: D57.00 Hb-SS disease with crisis, unspecified (principal); F41.9 Anxiety disorder, unspecified
CPT/HCPCS: 36415; 80053; 83615; 83690; 84703; 85025; 85045; 86850; 86900; 86901; 93005; 96374; 96375; 96376; G0378; J1170; J1200; J2405; J7030

== ENCOUNTER 2019-02-26 14:07 | Emergency (ER) | payer MEDICAID, OTHER ==
[~2019-02-26] VITALS: Ht 160 cm; Wt 57.5 kg
[2019-02-26 14:13] VITALS: Ht 160 cm; Wt 57.5 kg
[2019-02-26] MEDS ORDERED: HYDROmorphONE 2 MG/ML SYG IM STA (15:33)
[2019-02-26] MEDS ORDERED: ONDANSETRON (ODT) 4 MG TAB ODT STA (15:33)
[2019-02-26] MEDS ORDERED: ONDA4TAB8 PO (15:34)
[2019-02-26 16:18] VITALS: BP 120/70; PULSE 78; RESP 16
--- NOTE | 2019-02-26 20:16 | ERD ---
ER Documentation Chief Complaint Chief Complaint SICKLE CELL CRISIS HPI This is a 35-year-old woman with a history of chronic pain syndrome requesting opioid analgesics for full body pain that she attributes to sickle cell crisis pain. She is requesting hydromorphone. She states she has had some nausea and vomiting at home as well but denies diarrhea, no chest pain or shortness of breath, no fevers or chills, no trauma, no headache or blurry vision. ROS All systems reviewed and are negative except as per history of present illness. Medications Home Meds Active Scripts Ondansetron Hcl* (Zofran*) 4 Mg Tablet, 4 MG PO Q8H PRN for NAUSEA AND/OR VOMITING, #30 TAB Prov:EVERETT LAMBERT MD 02/26/19 Oseltamivir Phosphate* (Tamiflu*) 75 Mg Capsule, 75 MG PO BID for 5 Days, CAP Prov:AMANDA LARA 01/31/19 Hydroxyurea* (Hydroxyurea*) 500 Mg Capsule, 500 MG PO BID, #14 CAP Prov:STEVENSON GONZALEZ MD 01/09/19 Reported Medications Quetiapine Fumarate* (Seroquel*) 400 Mg Tablet, 400 MG PO BID, TAB 01/19/19 Trazodone Hcl* (Trazodone Hcl*) 50 Mg Tablet, 50 MG PO BID, #60 TAB 01/16/19 Sertraline Hcl* (Sertraline Hcl*) 100 Mg Tablet, 100 MG PO QAM, #30 TAB 01/16/19 Sertraline Hcl* (Sertraline Hcl*) 50 Mg Tablet, 50 MG PO QPM, #30 TAB 01/16/19 Hydromorphone Hcl* (Hydromorphone Hcl*) 4 Mg Tablet, 4 MG PO Q4H PRN for PAIN, TAB 01/16/19 Diphenhydramine Hcl* (Benadryl*) 50 Mg Cap, 50 MG PO Q6 PRN for ITCHING, CAP 01/16/19 Ondansetron Hcl* (Ondansetron Hcl*) 8 Mg Tablet, 8 MG PO Q6H PRN for NAUSEA AND OR VOMITING, TAB 01/16/19 Folic Acid* (Folic Acid*) 1 Mg Tablet, 1 MG PO DAILY, TAB 01/16/19 Allergies Allergies: Coded Allergies: ketorolac (Unverified Allergy, Unknown, HIVES, 01/31/19) morphine (Unverified Allergy, Unknown, HIVES, 01/31/19) prochlorperazine (Unverified Allergy, Unknown, HIVES, 01/31/19) haloperidol (Unverified Adverse Reaction, Unknown, 01/31/19) metoclopramide (Unverified Adverse Reaction, Unknown, 01/31/19) PMhx/Soc Chronic pain syndrome, opioid dependence, psychiatric illness History of Surgery: No Anesthesia Reaction: No Hx Neurological Disorder: No Hx Respiratory Disorders: No Hx Cardiac Disorders: No Hx Psychiatric Problems: No Hx Miscellaneous Medical Probl: No Hx Alcohol Use: No Hx Substance Use: Yes Hx Tobacco Use: No FmHx Family History: No diabetes Physical Exam Vitals Vital Signs Date Temp Pulse Resp B/P (MAP) Pulse Ox O2 O2 Flow FiO2 Time Delivery Rate 02/26/19 78 16 120/70 100 Room Air 16:18 (87) 02/26/19 98.6 82 16 125/72 100 Room Air 15:38 (89) 02/26/19 98.8 86 18 121/72 100 14:13 (88) Physical Exam Const: No acute distress Head: Atraumatic Eyes: Normal Conjunctiva ENT: Normal External Ears, Nose and Mouth. Neck: Full range of motion. No meningismus. Resp: Clear to auscultation bilaterally Cardio: Regular rate and rhythm, no murmurs Abd: Soft, non tender, non distended. Normal bowel sounds Skin: No petechiae or rashes Back: No midline or flank tenderness Ext: No cyanosis, or edema Neur: Awake and alert x3, no focal deficits or facial asymmetry Psych: Normal Mood and Affect Results 24 hrs Current Medications Medications Dose Sig/Edmar Start Time Status Last (Trade) Ordered Route PRN Stop Time Admin Dose Reason Admin Ondansetron 8 mg ONCE STAT 02/26/19 DC 02/26/19 HCl (Zofran ODT 15:33 02/26/19 15:42 Odt) 15:34 1 mg ONCE STAT 02/26/19 DC 02/26/19 Hydromorphone IM 15:33 02/26/19 15:42 HCl 15:34 (Dilaudid) Procedures/MDM I administered hydromorphone 1 mg IM x1 and Zofran 8 mg ODT sublingual for nausea although patient had no episodes of vomiting while here. I did review her extensive recent medical records and of note she was admitted to this hospital very recently but ended up signing out AGAINST MEDICAL ADVICE because she felt she was not being given enough IV hydromorphone. Patient's vital signs are normal at this time and she has no signs or symptoms of acute infection or sickle cell crisis, she will be discharged to follow-up with PMD, and I will defer all opioid analgesics to her PMD. Patient feels much better at this time, and vital signs are normal, symptoms have improved. I did give strict instructions to return to the ED if symptoms continue or worsen, patient will otherwise follow-up with primary care physician. Patient understood instructions and agreed to plan. Disclaimer: Inadvertent spelling and grammatical errors are likely due to EHR/dictation software use and do not reflect on the overall quality of patient care. Also, please note that the electronic time recorded on this note does not necessarily reflect the actual time of the patient encounter. Departure Diagnosis: Primary Impression: Chronic pain syndrome Additional Impression: Opioid dependence Substance use status: with unspecified opioid-induced disorder Qualified Codes: F11.29 - Opioid dependence with unspecified opioid-induced disorder Condition: Good Patient Instructions: Sickle Cell Pain Crisis EVERETT LAMBERT MD Feb 26, 2019 20:16
== END 2019-02-26 16:22 | disposition home or self-care (01) ==
LOC: E/R 14:07
DX: G89.4 Chronic pain syndrome (principal); F11.29 Opioid dependence with unspecified opioid-induced disorder
CPT/HCPCS: 96372; 99284; J1170

== ENCOUNTER 2019-03-02 10:18 | Inpatient (IN) | payer MEDICAID ==
[~2019-03-02] VITALS: Ht 157.5 cm; Wt 57.7 kg
[~2019-03-02 10:18] MED LIST changes: +ONDA4TAB8 PO
[2019-03-02 10:20] VITALS: Ht 157.5 cm; Wt 57.7 kg
[2019-03-02] MEDS ORDERED: ONDANSETRON (ODT) 4 MG TAB ODT STA (10:59)
[2019-03-02] MEDS ORDERED: HYDROmorphONE 2 MG/ML SYG IM STA ×3 (10:59→13:53)
[2019-03-02] MEDS ORDERED: DIPHENHYDRAMINE 50 MG INJ IM ONE ×2 (11:00→13:00)
--- NOTE | 2019-03-02 12:18 | ERD ---
ER Documentation Chief Complaint Chief Complaint pt bib self with c/o pain due to sickle cell x 2 days HPI This is a 34-year-old female with a history of sickle cell disease, who has been having pain, described as diffuse body aches, similar to prior episodes. She is on oral Dilaudid, has not provided relief, there are no alleviating or aggravating factors. She has not had a fever. No urinary symptoms, no abdominal pain ROS All systems reviewed and are negative except as per history of present illness. Medications Home Meds Active Scripts Ondansetron Hcl* (Zofran*) 4 Mg Tablet, 4 MG PO Q8H PRN for NAUSEA AND/OR VOMITING, #30 TAB Prov:EVERETT LAMBERT MD 02/26/19 Hydroxyurea* (Hydroxyurea*) 500 Mg Capsule, 500 MG PO BID, #14 CAP Prov:STEVENSON GONZALEZ MD 01/09/19 Reported Medications Quetiapine Fumarate* (Seroquel*) 400 Mg Tablet, 400 MG PO BID, TAB 01/19/19 Trazodone Hcl* (Trazodone Hcl*) 50 Mg Tablet, 50 MG PO BID, #60 TAB 01/16/19 Sertraline Hcl* (Sertraline Hcl*) 100 Mg Tablet, 100 MG PO QAM, #30 TAB 01/16/19 Sertraline Hcl* (Sertraline Hcl*) 50 Mg Tablet, 50 MG PO QPM, #30 TAB 01/16/19 Hydromorphone Hcl* (Hydromorphone Hcl*) 4 Mg Tablet, 4 MG PO Q4H PRN for PAIN, TAB 01/16/19 Diphenhydramine Hcl* (Benadryl*) 50 Mg Cap, 50 MG PO Q6 PRN for ITCHING, CAP 01/16/19 Folic Acid* (Folic Acid*) 1 Mg Tablet, 1 MG PO DAILY, TAB 01/16/19 Discontinued Reported Medications Ondansetron Hcl* (Ondansetron Hcl*) 8 Mg Tablet, 8 MG PO Q6H PRN for NAUSEA AND OR VOMITING, TAB 01/16/19 Discontinued Scripts Oseltamivir Phosphate* (Tamiflu*) 75 Mg Capsule, 75 MG PO BID for 5 Days, CAP Prov:AMANDA LARA 01/31/19 Allergies Allergies: Coded Allergies: ketorolac (Unverified Allergy, Unknown, HIVES, 03/02/19) morphine (Unverified Allergy, Unknown, HIVES, 03/02/19) prochlorperazine (Unverified Allergy, Unknown, HIVES, 03/02/19) haloperidol (Unverified Adverse Reaction, Unknown, 03/02/19) metoclopramide (Unverified Adverse Reaction, Unknown, 03/02/19) PMhx/Soc History of Surgery: No Anesthesia Reaction: No Hx Neurological Disorder: No Hx Respiratory Disorders: No Hx Cardiac Disorders: No Hx Psychiatric Problems: No Hx Miscellaneous Medical Probl: No Hx Alcohol Use: No Hx Substance Use: Yes Hx Tobacco Use: No Physical Exam Vitals Vital Signs Date Temp Pulse Resp B/P (MAP) Pulse Ox O2 O2 Flow FiO2 Time Delivery Rate 03/02/19 97.3 74 18 119/79 98 10:20 (92) Physical Exam Const: No acute distress Head: Atraumatic Eyes: Normal Conjunctiva ENT: Normal External Ears, Nose and Mouth. Neck: Full range of motion. No meningismus. Resp: Clear to auscultation bilaterally Cardio: Regular rate and rhythm, no murmurs Abd: Soft, non tender, non distended. Normal bowel sounds Skin: No petechiae or rashes Back: No midline or flank tenderness Ext: No cyanosis, or edema Neur: Awake and alert Psych: Normal Mood and Affect Result Diagram: 03/02/19 1113 03/02/19 1113 Results 24 hrs Laboratory Tests Test 03/02/19 11:08 03/02/19 11:13 POC Beta HCG, Qualitative NEGATIVE White Blood Count 5.8 10^3/ul Red Blood Count 4.10 10^6/ul Hemoglobin 9.0 g/dl Hematocrit 30.9 % Mean Corpuscular Volume 75.4 fl Mean Corpuscular Hemoglobin 22.0 pg Mean Corpuscular Hemoglobin Concent 29.1 g/dl Red Cell Distribution Width 15.3 % Platelet Count 394 10^3/UL Mean Platelet Volume 10.2 fl Immature Granulocytes % 0.300 % Neutrophils % 60.2 % Lymphocytes % 31.8 % Monocytes % 4.9 % Eosinophils % 2.3 % Basophils % 0.5 % Nucleated Red Blood Cells % 0.0 /100WBC Immature Granulocytes # 0.020 10^3/ul Neutrophils # 3.5 10^3/ul Lymphocytes # 1.8 10^3/ul Monocytes # 0.3 10^3/ul Eosinophils # 0.1 10^3/ul Basophils # 0.0 10^3/ul Nucleated Red Blood Cells # 0.0 10^3/ul Absolute Reticulocyte Count 0.060 X10^6 Percent Reticulocyte Count 1.5 % Sodium Level 140 mmol/L Potassium Level 3.9 mmol/L Chloride Level 103 mmol/L Carbon Dioxide Level 25 mmol/L Anion Gap 12 Blood Urea Nitrogen 10 mg/dl Creatinine 0.60 mg/dl Est Glomerular Filtrat Rate mL/min > 60 mL/min Glucose Level 80 mg/dl Calcium Level 9.6 mg/dl Total Bilirubin 0.3 mg/dl Direct Bilirubin 0.00 mg/dl Indirect Bilirubin 0.3 mg/dl Aspartate Amino Transf (AST/SGOT) 34 IU/L Alanine Aminotransferase (ALT/SGPT) 13 IU/L Alkaline Phosphatase 94 IU/L Total Protein 8.3 g/dl Albumin 4.5 g/dl Globulin 3.80 g/dl Albumin/Globulin Ratio 1.18 Current Medications Medications Dose Sig/Demar Start Time Status Last (Trade) Ordered Route PRN Stop Time Admin Dose Reason Admin 2 mg ONCE STAT 03/02/19 DC 03/02/19 Hydromorphone IM 10:59 11:26 HCl 03/02/19 11:01 (Dilaudid) 50 mg ONCE ONCE 03/02/19 DC 03/02/19 Diphenhydrami IM 11:00 11:26 ne HCl 03/02/19 11:01 (Benadryl) Ondansetron 8 mg ONCE STAT 03/02/19 DC 03/02/19 HCl (Zofran ODT 10:59 11:25 Odt) 03/02/19 11:01 1 mg ONCE STAT 03/02/19 DC Hydromorphone IM 12:55 HCl 03/02/19 13:54 (Dilaudid) 25 mg ONCE ONCE 03/02/19 DC 03/02/19 Diphenhydrami IM 13:00 14:03 ne HCl 03/02/19 13:01 (Benadryl) 2 mg ONCE STAT 03/02/19 DC 03/02/19 Hydromorphone IM 13:53 14:02 HCl 03/02/19 13:54 (Dilaudid) Procedures/MDM 34-year-old female with history of sickle cell disease, presents for pain crisis. She had no infectious symptoms on exam, her labs were overall stable from previous visit. She received Dilaudid at 2 mg x2, however she continued h aving pain. Given her continued pain, she will be admitted for pain crisis, she states that she has had difficulty obtaining hematology follow-up, and I expressed to her how important this would be, after her admission, she is comfortable with plan of care, will plan for admission for observation Accepting Care Team: Current data and ongoing care discussed. Primary: [employer]: None Outstanding Data: none Departure Diagnosis: Primary Impression: Sickle cell pain crisis Condition: Stable EVERETT LONG MD Mar 02, 2019 12:18
[2019-03-02] MEDS ORDERED: ZOLPIDEM 5 MG TAB PO PRN (15:30)
[2019-03-02] MEDS ORDERED: HYDROmorphONE 1 MG/ML SYG IV PRN (15:30)
[2019-03-02] MEDS ORDERED: ACETAMINOPHEN 325 MG TAB PO PRN (15:30)
[2019-03-02] MEDS ORDERED: HYDROCODONE/APAP (5/325) TAB PO PRN (15:30)
[2019-03-02] MEDS ORDERED: ONDANSETRON 4 MG INJ IV PRN (15:30)
[2019-03-02] MEDS ORDERED: MAGNESIUM HYDROXIDE 30ML CUP PO PRN (15:30)
[2019-03-02] MEDS ORDERED: DOCUSATE SODIUM 100 MG CAP PO PRN (15:30)
[2019-03-02] MEDS ORDERED: DIPHENHYDRAMINE 50 MG CAP PO PRN (15:30)
[2019-03-02] MEDS ORDERED: NACL 0.9% 3 ML SYG IV SCH (15:30)
--- NOTE | 2019-03-02 15:40 | HP ---
Date/Time of Note Date/Time of Note DATE: 03/02/19 TIME: 15:38 Assessment/Plan VTE Prophylaxis SCD applied (from Ns): Yes Pharmacological prophylaxis: NA/contraindicated Pharm contraindication: low risk/ambulating Assessment/Plan Hospital Course 1. Diffuse pain possibly secondary to sickle cell crisis IV fluids Pain control Continue hydroxyurea Patient to establish outpatient follow-up with director behavioral health 2. Microcytic anemia likely secondary to sickle cell disease Iron panel in a.m. Prophylaxis: SCDs Result Diagram: 03/02/19 1113 03/02/19 1113 Results 24hrs Laboratory Tests Test 03/02/19 11:08 03/02/19 11:13 POC Beta HCG, Qualitative NEGATIVE White Blood Count 5.8 Red Blood Count 4.10 #L Hemoglobin 9.0 #L Hematocrit 30.9 #L Mean Corpuscular Volume 75.4 L Mean Corpuscular Hemoglobin 22.0 L Mean Corpuscular Hemoglobin Concent 29.1 L Red Cell Distribution Width 15.3 H Platelet Count 394 # Mean Platelet Volume 10.2 Immature Granulocytes % 0.300 Neutrophils % 60.2 Lymphocytes % 31.8 Monocytes % 4.9 Eosinophils % 2.3 Basophils % 0.5 Nucleated Red Blood Cells % 0.0 Immature Granulocytes # 0.020 Neutrophils # 3.5 Lymphocytes # 1.8 Monocytes # 0.3 Eosinophils # 0.1 Basophils # 0.0 Nucleated Red Blood Cells # 0.0 Absolute Reticulocyte Count 0.060 Percent Reticulocyte Count 1.5 Sodium Level 140 Potassium Level 3.9 Chloride Level 103 Carbon Dioxide Level 25 Anion Gap 12 Blood Urea Nitrogen 10 Creatinine 0.60 Est Glomerular Filtrat Rate mL/min > 60 Glucose Level 80 Calcium Level 9.6 Total Bilirubin 0.3 Direct Bilirubin 0.00 Indirect Bilirubin 0.3 Aspartate Amino Transf (AST/SGOT) 34 Alanine Aminotransferase (ALT/SGPT) 13 Alkaline Phosphatase 94 Total Protein 8.3 H Albumin 4.5 Globulin 3.80 H Albumin/Globulin Ratio 1.18 HPI/ROS Admit Date/Time Admit Date/Time March 02, 2019 Hx of Present Illness Patient is a 34-year-old female with a history of sickle cell disease with mul tiple hospitalizations and ER visits for sickle cell crisis. The patient has been advised that she needs outpatient follow-up with a sickle cell specialist and is yet to establish outpatient follow-up. Patient presents with reported diffuse pain and self-reported sickle cell crisis. Patient has no other complaints this time. ROS Constitutional: no complaints, improved Eyes: no complaints ENT: no complaints Respiratory: no complaints Cardiovascular: no complaints Gastrointestinal: no complaints Genitourinary: no complaints Musculoskeletal: bone/joint pain Skin: no complaints Neurologic: no complaints Endocrine: no complaints Lymphatic: no complaints Psychological: no complaints, nl mood/affect Immunologic: no complaints PMH/Family/Social Past Medical History Sickle cell disease Medications Current Medications Sodium Chloride 1,000 ml @ 100 mls/hr Q10H IV ; Start 03/02/19 at 15:06 IV Flush (NS 3 ml) 3 ml PER PROTOCOL IV ; Start 03/02/19 at 15:30 Ondansetron HCl (Zofran Inj) 4 mg Q6H PRN IV NAUSEA/VOMITING; Start 03/02/19 at 15:30 Acetaminophen (Tylenol Tab) 650 mg Q6H PRN PO .PAIN 1-3 OR TEMP; Start 03/02/19 at 15:30 Acetaminophen/ Hydrocodone Bitart ([place] (5/325)) 1 tab Q6H PRN PO .MOD PAIN 4- 6; Start 03/02/19 at 15:30 Hydromorphone HCl (Dilaudid) 1 mg Q3 PRN IV .SEVERE PAIN 7-10; Start 03/02/19 at 15:30 Docusate Sodium (Colace) 100 mg Q12H PRN PO .CONSTIPATION; Start 03/02/19 at 15:30 Magnesium Hydroxide (Milk Of Mag) 30 ml DAILY PRN PO .CONSTIPATION; Start 03/02/19 at 15:30 Zolpidem Tartrate (Ambien) 5 mg QHS PRN PO .INSOMNIA; Start 03/02/19 at 15:30 Diphenhydramine HCl (Benadryl) 50 mg Q6 PRN PO ITCHING; Start 03/02/19 at 15:30 Folic Acid (Folic Acid) 1 mg DAILY PO ; Start 03/03/19 at 09:00 Hydroxyurea (Hydrea) 500 mg BID PO ; Start 03/02/19 at 21:00; Status UNV Quetiapine Fumarate (Seroquel) 400 mg BID PO ; Start 03/02/19 at 21:00; Status UNV Trazodone HCl (Desyrel) 50 mg BID PO ; Start 03/02/19 at 21:00; Status UNV Coded Allergies: ketorolac (Unverified Allergy, Unknown, HIVES, 03/02/19) morphine (Unverified Allergy, Unknown, HIVES, 03/02/19) prochlorperazine (Unverified Allergy, Unknown, HIVES, 03/02/19) haloperidol (Unverified Adverse Reaction, Unknown, 03/02/19) metoclopramide (Unverified Adverse Reaction, Unknown, 03/02/19) Family History Significant Family History: no pertinent family hx Social History Alcohol Use: rarely Smoking Status: Current every day smoker Drug Use: none Exam/Review of Systems Vital Signs Vitals Vital Signs Date Temp Pulse Resp B/P (MAP) Pulse Ox O2 O2 Flow FiO2 Time Delivery Rate 03/02/19 97.3 83 18 107/74 98 Room Air 15:32 (85) Exam Constitutional: alert, oriented Respiratory: clear to auscultation Cardiovascular: regular rate and rhythm Gastrointestinal: soft; No distended Musculoskeletal: nl extremities to inspection TRINIDAD LOVING Mar 02, 2019 15:40
[2019-03-02] MEDS: SOD CHLORIDE 0.9% 1,000 ML IV SCH (17:01)
[2019-03-02] MEDS: HYDROmorphONE 1 MG/ML SYG IV PRN ×2 (17:02→21:05)
[2019-03-02 17:59] VITALS: BP 119/58; PULSE 89; RESP 18
[2019-03-02 19:25] VITALS: BP 110/61; PULSE 76; RESP 18
[2019-03-02] MEDS ORDERED: DIPHENHYDRAMINE 50 MG INJ IV ONE (22:00)
[2019-03-02] MEDS: traZODone 50 MG TAB PO SCH (22:09)
[2019-03-02] MEDS: QUETIAPINE 100 MG TAB PO SCH (22:09)
[2019-03-02] MEDS: HYDROXYUREA 500 MG CAP PO SCH (22:17)
[2019-03-03] MEDS: HYDROmorphONE 1 MG/ML SYG IV PRN ×6 (00:43→20:41)
[2019-03-03 04:45] VITALS: BP 113/56; PULSE 78; RESP 17
[2019-03-03] MEDS: SOD CHLORIDE 0.9% 1,000 ML IV SCH ×3 (04:50→18:19)
[2019-03-03 07:38] VITALS: BP 117/69; PULSE 78; RESP 18
[2019-03-03] MEDS: QUETIAPINE 100 MG TAB PO SCH ×3 (09:00→22:34)
[2019-03-03] MEDS: traZODone 50 MG TAB PO SCH ×3 (09:32→22:34)
[2019-03-03] MEDS: FOLIC ACID 1 MG TAB PO SCH (09:32)
[2019-03-03] MEDS: HYDROXYUREA 500 MG CAP PO SCH ×2 (09:35→20:42)
--- NOTE | 2019-03-03 11:19 | PN ---
Date/Time of Note Date/Time of Note DATE: 03/03/19 TIME: 11:18 Assessment/Plan VTE Prophylaxis Risk score (from Nsg)>0 risk: 4 SCD applied (from Ns): Yes Pharmacological prophylaxis: NA/contraindicated Pharm contraindication: low risk/ambulating Lines/Catheters IV Catheter Type (from Nrsg): Peripheral IV Urinary Cath still in place: No Assessment/Plan Hospital Course 1. 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 Microcytic anemia likely secondary to sickle cell disease Follow-up on iron panel Prophylaxis: SCDs Result Diagram: 03/02/19 1113 03/03/19 1017 Results 24hrs Laboratory Tests Test 03/03/19 10:17 White Blood Count Pending Red Blood Count Pending Hemoglobin Pending Hematocrit Pending Mean Corpuscular Volume Pending Mean Corpuscular Hemoglobin Pending Mean Corpuscular Hemoglobin Concent Pending Red Cell Distribution Width Pending Platelet Count Pending Mean Platelet Volume Pending Sodium Level 141 Potassium Level 4.4 Chloride Level 109 Carbon Dioxide Level 24 Anion Gap 8 Blood Urea Nitrogen 11 Creatinine 0.65 Est Glomerular Filtrat Rate mL/min > 60 Glucose Level 67 #L Calcium Level 8.7 Phosphorus Level 4.2 Magnesium Level 1.8 Iron Level 33 L Total Iron Binding Capacity Pending Percent Iron Saturation Pending Subjective 24 Hr Interval Summary Musculoskeletal: bone/joint pain Exam/Review of Systems Exam Vitals Vital Signs Date Temp Pulse Resp B/P (MAP) Pulse Ox O2 O2 Flow FiO2 Time Delivery Rate 03/03/19 98.3 78 18 117/69 99 Room Air 07:38 (85) Intake and Output 03/02/19 03/02/19 03/03/19 1414:59 22:59 06:59 IntakeIntake Total 240 ml 480 ml BalanceBalance 240 ml 480 ml Constitutional: alert, oriented Respiratory: clear to auscultation Cardiovascular: regular rate and rhythm Gastrointestinal: soft; No distended Musculoskeletal: nl extremities to inspection Results Results 24hrs Laboratory Tests Test 03/03/19 10:17 White Blood Count Pending Red Blood Count Pending Hemoglobin Pending Hematocrit Pending Mean Corpuscular Volume Pending Mean Corpuscular Hemoglobin Pending Mean Corpuscular Hemoglobin Concent Pending Red Cell Distribution Width Pending Platelet Count Pending Mean Platelet Volume Pending Sodium Level 141 Potassium Level 4.4 Chloride Level 109 Carbon Dioxide Level 24 Anion Gap 8 Blood Urea Nitrogen 11 Creatinine 0.65 Est Glomerular Filtrat Rate mL/min > 60 Glucose Level 67 #L Calcium Level 8.7 Phosphorus Level 4.2 Magnesium Level 1.8 Iron Level 33 L Total Iron Binding Capacity Pending Percent Iron Saturation Pending Medications Medication Current Medications Sodium Chloride 1,000 ml @ 100 mls/hr Q10H IV Last administered on 03/03/19at 04:50; Admin Dose 100 MLS/HR; Start 03/02/19 at 15:06 IV Flush (NS 3 ml) 3 ml PER PROTOCOL IV Last administered on 03/02/19at 22:09; Admin Dose 3 ML; Start 03/02/19 at 15:30 Ondansetron HCl (Zofran Inj) 4 mg Q6H PRN IV NAUSEA/VOMITING; Start 03/02/19 at 15:30 Acetaminophen (Tylenol Tab) 650 mg Q6H PRN PO .PAIN 1-3 OR TEMP; Start 03/02/19 at 15:30 Acetaminophen/ Hydrocodone Bitart ([place] (5/325)) 1 tab Q6H PRN PO .MOD PAIN 4- 6; Start 03/02/19 at 15:30 Docusate Sodium (Colace) 100 mg Q12H PRN PO .CONSTIPATION; Start 03/02/19 at 15:30 Magnesium Hydroxide (Milk Of Mag) 30 ml DAILY PRN PO .CONSTIPATION; Start 03/02/19 at 15:30 Zolpidem Tartrate (Ambien) 5 mg QHS PRN PO .INSOMNIA; Start 03/02/19 at 15:30 Diphenhydramine HCl (Benadryl) 50 mg Q6 PRN PO ITCHING Last administered on 03/02/19at 17:02; Admin Dose 50 MG; Start 03/02/19 at 15:30 Folic Acid (Folic Acid) 1 mg DAILY PO Last administered on 03/03/19at 09:32; Admin Dose 1 MG; Start 03/03/19 at 09:00 Hydroxyurea (Hydrea) 500 mg BID PO Last administered on 03/03/19at 09:35; Admin Dose 500 MG; Start 03/02/19 at 21:00 Quetiapine Fumarate (Seroquel) 400 mg BID PO Last administered on 03/02/19at 22:09; Admin Dose 400 MG; Start 03/02/19 at 21:00 Trazodone HCl (Desyrel) 50 mg BID PO Last administered on 03/03/19at 09:32; Admin Dose 50 MG; Start 03/02/19 at 21:00 Hydromorphone HCl (Dilaudid) 1 mg Q4 PRN IV .SEVERE PAIN 7-10 Last administered on 03/03/19at 08:39; Admin Dose 1 MG; Start 03/02/19 at 16:30 TRINIDAD LOVING Mar 03, 2019 11:19
[2019-03-03] MEDS: HYDROmorphONE 4 MG TAB PO PRN ×3 (14:16→22:38)
[2019-03-03 15:13] VITALS: BP 129/64; PULSE 94; RESP 18
[2019-03-03 19:41] VITALS: BP 117/69; PULSE 81; RESP 17
[2019-03-03] MEDS ORDERED: DIPHENHYDRAMINE 50 MG INJ IV ONE (22:30)
[2019-03-04] MEDS: HYDROmorphONE 1 MG/ML SYG IV PRN ×4 (01:51→14:03)
[2019-03-04 02:03] VITALS: BP 100/57; PULSE 80; RESP 18
[2019-03-04] MEDS: SOD CHLORIDE 0.9% 1,000 ML IV SCH (05:56)
[2019-03-04] MEDS: HYDROmorphONE 4 MG TAB PO PRN ×2 (08:12→12:08)
[2019-03-04 08:27] VITALS: BP 100/52; PULSE 70; RESP 14
[2019-03-04] MEDS: QUETIAPINE 100 MG TAB PO SCH (09:00)
[2019-03-04] MEDS: traZODone 50 MG TAB PO SCH (09:00)
[2019-03-04] MEDS: FOLIC ACID 1 MG TAB PO SCH (10:23)
[2019-03-04] MEDS: HYDROXYUREA 500 MG CAP PO SCH (10:25)
--- NOTE | 2019-03-04 18:47 | DS ---
Date/Time of Note Date/Time of Note DATE: 03/04/19 TIME: 18:45 Discharge Summary Admission/Discharge Info Admit Date/Time Mar 02, 2019 at 17:43 Discharge Date/Time Mar 04, 2019 at 14:28 Discharge Diagnosis Patient left AMA 1. 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 at home 2. Microcytic anemia likely secondary to sickle cell disease TIBC is normal Patient Condition: Good Hospital Course Patient is a 34-year-old female with a history of sickle cell disease with multiple hospitalizations and ER visits for sickle cell crisis. The patient has been advised that she needs outpatient follow-up with a sickle cell specialist and is yet to establish outpatient follow-up. Patient presents with reported diffuse pain and self-reported sickle cell crisis. Patient received IV fluids, hydroxyurea, Dilaudid IV for breakthrough pain and was continued on her home Dilaudid oral. Patient was requesting higher doses of pain meds even though vitals were stable and patient did not appear to be in pain. Patient left AMA. Home Meds Active Scripts Ondansetron Hcl* (Zofran*) 4 Mg Tablet, 4 MG PO Q8H PRN for NAUSEA AND/OR VOMITING, #30 TAB Prov:EVERETT LAMBERT MD 02/26/19 Hydroxyurea* (Hydroxyurea*) 500 Mg Capsule, 500 MG PO BID, #14 CAP Prov:STEVENSON GONZALEZ MD 01/09/19 Reported Medications Quetiapine Fumarate* (Seroquel*) 400 Mg Tablet, 400 MG PO BID, TAB 01/19/19 Trazodone Hcl* (Trazodone Hcl*) 50 Mg Tablet, 50 MG PO BID, #60 TAB 01/16/19 Sertraline Hcl* (Sertraline Hcl*) 100 Mg Tablet, 100 MG PO QAM, #30 TAB 01/16/19 Sertraline Hcl* (Sertraline Hcl*) 50 Mg Tablet, 50 MG PO QPM, #30 TAB 01/16/19 Hydromorphone Hcl* (Hydromorphone Hcl*) 4 Mg Tablet, 4 MG PO Q4H PRN for PAIN, TAB 01/16/19 Diphenhydramine Hcl* (Benadryl*) 50 Mg Cap, 50 MG PO Q6 PRN for ITCHING, CAP 01/16/19 Folic Acid* (Folic Acid*) 1 Mg Tablet, 1 MG PO DAILY, TAB 01/16/19 Discontinued Reported Medications Ondansetron Hcl* (Ondansetron Hcl*) 8 Mg Tablet, 8 MG PO Q6H PRN for NAUSEA AND OR VOMITING, TAB 01/16/19 Discontinued Scripts Oseltamivir Phosphate* (Tamiflu*) 75 Mg Capsule, 75 MG PO BID for 5 Days, CAP Prov:AMANDA LARA 01/31/19 Follow-up Plan FOLLOW UP WITH YOUR PRIMARY CARE PHYSICIAN IN 1-2 WEEKS Primary Care Provider Care Physician No Primary Time spent on discharge: < 30 minutes TRINIDAD LOVING Mar 04, 2019 18:47
== END 2019-03-04 14:28 | disposition left against medical advice (07) | DRG 812 ==
LOC: E/R 10:18 → MS1 14:53 → OBSVTOIN 17:43 → MS1 17:45
PROVIDERS: ADMIT Internal Medicine; ATTEND Internal Medicine
DX: D57.00 Hb-SS disease with crisis, unspecified (principal)
CPT/HCPCS: 80048; 80053; 81025; 83540; 83735; 84100; 85025; 85045; 96372; G0378; J1170; J1200; J7030

== ENCOUNTER 2019-03-25 22:44 | Emergency (ER) | payer SELFPAY ==
[~2019-03-25] VITALS: Ht 157.5 cm; Wt 60.0 kg
[~2019-03-25 22:44] MED LIST changes: -ONDA8TAB83 PO; -OSEL75CA23 PO
[2019-03-25 22:47] VITALS: Ht 157.5 cm; Wt 60.0 kg
[2019-03-25] MEDS ORDERED: ONDANSETRON (ODT) 4 MG TAB ODT STA (23:11)
[2019-03-25] MEDS ORDERED: HYDROmorphONE 2 MG/ML SYG IM STA (23:11)
[2019-03-25] MEDS ORDERED: DIPHENHYDRAMINE 50 MG INJ IM ONE (23:30)
[2019-03-26] MEDS ORDERED: HYDROmorphONE 2 MG/ML SYG IM STA (00:21)
--- NOTE | 2019-03-26 00:26 | ERD ---
ER Documentation Chief Complaint Chief Complaint c/o body pain x 4 days, hx of sickle cell HPI 34-year-old female with history of sickle cell anemia recent hospitalization on March 04 for pain crisis who presents the emergency room with pain to her leg back and body. The pain is in similar location to her chronic pain crisis. Usual triggers are weather, illness and stress. The patient describes no recent fevers chills chest pain cough or shortness of breath. The pain is 8 out of 10 and similar to her chronic pain. She takes Dilaudid p.o. at home. This is not working. ROS All systems reviewed and are negative except as per history of present illness. Medications Home Meds Active Scripts Ondansetron Hcl* (Zofran*) 4 Mg Tablet, 4 MG PO Q8H PRN for NAUSEA AND/OR VOMITING, #30 TAB Prov:EVERETT LAMBERT MD 02/26/19 Hydroxyurea* (Hydroxyurea*) 500 Mg Capsule, 500 MG PO BID, #14 CAP Prov:STEVENSON GONZALEZ MD 01/09/19 Reported Medications Quetiapine Fumarate* (Seroquel*) 400 Mg Tablet, 400 MG PO BID, TAB 01/19/19 Trazodone Hcl* (Trazodone Hcl*) 50 Mg Tablet, 50 MG PO BID, #60 TAB 01/16/19 Sertraline Hcl* (Sertraline Hcl*) 100 Mg Tablet, 100 MG PO QAM, #30 TAB 01/16/19 Sertraline Hcl* (Sertraline Hcl*) 50 Mg Tablet, 50 MG PO QPM, #30 TAB 01/16/19 Hydromorphone Hcl* (Hydromorphone Hcl*) 4 Mg Tablet, 4 MG PO Q4H PRN for PAIN, TAB 01/16/19 Diphenhydramine Hcl* (Benadryl*) 50 Mg Cap, 50 MG PO Q6 PRN for ITCHING, CAP 01/16/19 Folic Acid* (Folic Acid*) 1 Mg Tablet, 1 MG PO DAILY, TAB 01/16/19 Allergies Allergies: Coded Allergies: ketorolac (Unverified Allergy, Unknown, HIVES, 03/02/19) morphine (Unverified Allergy, Unknown, HIVES, 03/02/19) prochlorperazine (Unverified Allergy, Unknown, HIVES, 03/02/19) haloperidol (Unverified Adverse Reaction, Unknown, 03/02/19) metoclopramide (Unverified Adverse Reaction, Unknown, 03/02/19) PMhx/Soc History of Surgery: Yes (HX APPENDECTOMY,OVARIAN CYST SX,PARTIAL SPLEENECTOMY) Anesthesia Reaction: No Hx Neurological Disorder: No Hx Respiratory Disorders: No Hx Cardiac Disorders: No Hx Psychiatric Problems: No Hx Miscellaneous Medical Probl: Yes (SICKLE CELL ) Hx Alcohol Use: No Hx Substance Use: No Hx Tobacco Use: Yes Smoking Status: Never smoker FmHx Family History: No diabetes Physical Exam Vitals Vital Signs Date Temp Pulse Resp B/P (MAP) Pulse Ox O2 O2 Flow FiO2 Time Delivery Rate 03/25/19 98.5 89 18 130/79 100 Room Air 23:23 (96) 03/25/19 98.5 83 18 127/63 100 22:47 (84) Physical Exam General: Well developed, well nourished, no acute distress Head: Normocephalic, atraumatic. Eyes: Pupils equally reactive, EOM intact ENT: Moist mucous membranes Neck: Supple, no lymphadenopathy Respiratory: Lungs clear bilaterally, no distress Cardiovascular: RRR, no murmurs, rubs, or gallops Abdominal: Soft, non-tender, non-distended, no peritoneal signs : Deferred MSK: No edema, no unilateral swelling, 5/5 strength Neurologic: Alert and oriented, moving all extremities, normal speech, no focal weakness, no cerebellar signs Skin: No rash Psych: Normal mood Results 24 hrs Current Medications Medications Dose Sig/Edmar Start Time Status Last (Trade) Ordered Route PRN Stop Time Admin Dose Reason Admin 2 mg ONCE STAT 03/25/19 DC 03/25/19 Hydromorphone IM 23:11 03/25/19 23:22 HCl 23:12 (Dilaudid) 50 mg ONCE ONCE 03/25/19 DC 03/25/19 Diphenhydrami IM 23:30 03/25/19 23:23 ne HCl 23:31 (Benadryl) Ondansetron 4 mg ONCE STAT 03/25/19 DC 03/25/19 HCl (Zofran ODT 23:11 03/25/19 23:23 Odt) 23:12 1 mg ONCE STAT 03/26/19 DC Hydromorphone IM 00:21 03/26/19 HCl 00:22 (Dilaudid) Procedures/MDM MEDICAL DECISION MAKING: The patient's presentation is very consistent with acute exacerbation of chronic pain versus sickle cell pain crisis. Patient exhibits no signs or symptoms concerning for complications such as acute chest, illness or hemolysis. No fevers or chills. Pain is in similar location to her chronic pain and pain crisis issues. The patient is difficult IV stick therefore I medications are appropriate. ER COURSE: * The patient was given IM medications including Dilaudid and Benadryl. She required a repeat dose. * The patient is feeling much better and is able to transition to her home oral medications no indication for laboratory testing. CONSULTATION: None DISPOSITION PLAN: The patient does not have an identifiable emergent medical condition that warrants inpatient hospitalization at this time. The patient is deemed safe for discharge with outpatient follow-up. We discussed follow up with the patient's primary care doctor within 24 to 48 hours as needed. We also discussed return to the emergency room for worsening symptoms or worsening condition. Outpatient referral: None required Discharge Medications: None required Departure Diagnosis: Primary Impression: Sickle cell pain crisis Condition: Stable Patient Instructions: Sickle Cell Pain Crisis Referrals: COMMUNITY CLINICS YOU HAVE RECEIVED A MEDICAL SCREENING EXAM AND THE RESULTS INDICATE THAT YOU DO NOT HAVE A CONDITION THAT REQUIRES URGENT TREATMENT IN THE EMERGENCY DEPARTMENT. FURTHER EVALUATION AND TREATMENT OF YOUR CONDITION CAN WAIT UNTIL YOU ARE SEEN IN YOUR DOCTORS OFFICE WITHIN THE NEXT 1-2 DAYS. IT IS YOUR RESPONSIBILITY TO MAKE AN APPOINTMENT FOR FOLOW-UP CARE. IF YOU HAVE A PRIMARY DOCTOR --you should call your primary doctor and schedule an appointment IF YOU DO NOT HAVE A PRIMARY DOCTOR YOU CAN CALL OUR PHYSICIAN REFERRAL HOTLINE AT IF YOU CAN NOT AFFORD TO SEE A PHYSICIAN YOU CAN CHOSE FROM THE FOLLOWING OUR [facility] CLINICS [facility] [address] [facility] [address] [facility] [address] [facility] [address] [facility] [address] [facility]. [facility]. [address] [facility]. [facility] YOU HAVE RECEIVED A MEDICAL SCREENING EXAM AND THE RESULTS INDICATE THAT YOU DO NOT HAVE A CONDITION THAT REQUIRES URGENT TREATMENT IN THE EMERGENCY DEPARTMENT. FURTHER EVALUATION AND TREATMENT OF YOUR CONDITION CAN WAIT UNTIL YOU ARE SEEN IN YOUR DOCTORS OFFICE WITHIN THE NEXT 1-2 DAYS. IT IS YOUR RESPONSIBILITY TO MAKE AN APPOINTMENT FOR FOLOW-UP CARE. IF YOU HAVE A PRIMARY DOCTOR --you should call your primary doctor and schedule and appointment IF YOU DO NOT HAVE A PRIMARY DOCTOR YOU CAN CALL OUR PHYSICIAN REFERRAL HOTLINE AT . IF YOU CAN NOT AFFORD TO SEE A PHYSICIAN YOU CAN CHOSE FROM THE FOLLOWING [facility] INSTITUTIONS: [facility] [id number] [place] [address] [facility] [address] [place], [place] [id number] [place] [address] [address] [place] [address] Additional Instructions: Call your primary care doctor TOMORROW for an appointment during the next 1 WEEK.Tell the press secretary that you were referred from this facility.See the doctor sooner or return here if your condition worsens before your appointment time. LEON EMANUEL MD March 26, 2019 00:26
[2019-03-26 00:35] VITALS: BP 119/80; PULSE 73; RESP 16
== END 2019-03-26 00:37 | disposition home or self-care (01) ==
LOC: E/R 22:44
DX: D57.00 Hb-SS disease with crisis, unspecified (principal); Z87.891 Personal history of nicotine dependence
CPT/HCPCS: 96372; 99284; J1170; J1200

== ENCOUNTER 2019-03-27 12:39 | Emergency (ER) | payer SELFPAY ==
[~2019-03-27] VITALS: Ht 167.6 cm; Wt 50.0 kg
[2019-03-27 12:48] VITALS: BP 121/66; PULSE 90; RESP 18; Ht 167.6 cm; Wt 50.0 kg
== END 2019-03-27 15:00 | disposition left against medical advice (07) ==
LOC: E/R 12:39
DX: Z53.21 Procedure and treatment not carried out due to patient leaving prior to being seen by health care provider (principal)

== ENCOUNTER 2019-03-28 08:51 | Emergency (ER) | payer SELFPAY ==
[~2019-03-28] VITALS: Wt 69.0 kg
[2019-03-28] MEDS ORDERED: HYDROmorphONE 1 MG/ML SYG IV STA (09:56)
[2019-03-28] MEDS ORDERED: ONDANSETRON 4 MG INJ IV STA (09:56)
[2019-03-28] MEDS ORDERED: SOD CHLORIDE 0.9% 1,000 ML IV STA (09:56)
[2019-03-28] MEDS ORDERED: DIPHENHYDRAMINE 25 MG CAP PO ONE (10:00)
[2019-03-28] MEDS ORDERED: HYDROmorphONE 0.5 MG/0.5 ML SYG IV STA (12:07)
--- NOTE | 2019-03-28 12:16 | ERD ---
ER Documentation Chief Complaint Chief Complaint HX SICKLE CELL , HAS GENERALIZED PAIN HPI This is a 34-year-old woman with a history of sickle cell disease, chronic recurrent pain syndrome, opioid dependence presenting with full body aches. She states she has been using oral hydromorphone at home without relief of her pain was seen and evaluated 2 days ago here in the emergency department. Her pain is all over, she denies chest pain or shortness of breath, no cough, no fevers or chills, no calf or leg swelling, no blood per rectum or melena. Patient denies headache or blurry vision. ROS All systems reviewed and are negative except as per history of present illness. Medications Home Meds Active Scripts Ondansetron Hcl* (Zofran*) 4 Mg Tablet, 4 MG PO Q8H PRN for NAUSEA AND/OR VOMITING, #30 TAB Prov:EVERETT LAMBERT MD 02/26/19 Reported Medications Quetiapine Fumarate* (Seroquel*) 400 Mg Tablet, 400 MG PO BID, TAB 01/19/19 Trazodone Hcl* (Trazodone Hcl*) 50 Mg Tablet, 50 MG PO BID, #60 TAB 01/16/19 Sertraline Hcl* (Sertraline Hcl*) 100 Mg Tablet, 100 MG PO QAM, #30 TAB 01/16/19 Sertraline Hcl* (Sertraline Hcl*) 50 Mg Tablet, 50 MG PO QPM, #30 TAB 01/16/19 Hydromorphone Hcl* (Hydromorphone Hcl*) 4 Mg Tablet, 4 MG PO Q4H PRN for PAIN, TAB 01/16/19 Diphenhydramine Hcl* (Benadryl*) 50 Mg Cap, 50 MG PO Q6 PRN for ITCHING, CAP 01/16/19 Folic Acid* (Folic Acid*) 1 Mg Tablet, 1 MG PO DAILY, TAB 01/16/19 Discontinued Scripts Hydroxyurea* (Hydroxyurea*) 500 Mg Capsule, 500 MG PO BID, #14 CAP Prov:STEVENSON GONZALEZ MD 01/09/19 Allergies Allergies: Coded Allergies: ketorolac (Unverified Allergy, Unknown, HIVES, 03/28/19) morphine (Unverified Allergy, Unknown, HIVES, 03/28/19) prochlorperazine (Unverified Allergy, Unknown, HIVES, 03/28/19) haloperidol (Unverified Adverse Reaction, Unknown, 03/28/19) metoclopramide (Unverified Adverse Reaction, Unknown, 03/28/19) PMhx/Soc Chronic recurrent pain syndrome, opioid dependence, sickle cell disease History of Surgery: Yes (HX APPENDECTOMY,OVARIAN CYST SX,PARTIAL SPLEENECTOMY) Anesthesia Reaction: No Hx Neurological Disorder: No Hx Respiratory Disorders: No Hx Cardiac Disorders: No Hx Psychiatric Problems: No Hx Miscellaneous Medical Probl: Yes (SICKLE CELL ) Hx Alcohol Use: No Hx Substance Use: No Hx Tobacco Use: Yes Smoking Status: Current some day smoker FmHx Family History: No diabetes Physical Exam Vitals Vital Signs Date Temp Pulse Resp B/P (MAP) Pulse Ox O2 O2 Flow FiO2 Time Delivery Rate 03/28/19 69 16 130/67 98 Room Air 11:30 (88) 03/28/19 98.0 82 14 105/89 100 Room Air 09:07 (94) 03/28/19 98.1 87 18 115/69 99 08:53 (84) Physical Exam Const: No acute distress, afebrile HEENT: Catarina conjunctivae, no jaundice or icterus, moist mucous membranes Resp: Clear to auscultation bilaterally Cardio: Regular rate and rhythm, no murmurs Abd: Soft, non tender, non distended. Normal bowel sounds Skin: No petechiae or rashes Back: No midline or flank tenderness Ext: No cyanosis, or edema Neur: Awake and alert x3, no focal deficits or facial asymmetry, pupils equal round reactive to light Psych: Normal Mood and Affect Result Diagram: 03/28/19 1015 03/28/19 1015 Results 24 hrs Laboratory Tests Test 03/28/19 10:15 White Blood Count 6.2 10^3/ul Red Blood Count 4.24 10^6/ul Hemoglobin 9.2 g/dl Hematocrit 31.7 % Mean Corpuscular Volume 74.8 fl Mean Corpuscular Hemoglobin 21.7 pg Mean Corpuscular Hemoglobin Concent 29.0 g/dl Red Cell Distribution Width 16.5 % Platelet Count 437 10^3/UL Mean Platelet Volume 9.4 fl Immature Granulocytes % 0.200 % Neutrophils % 56.5 % Lymphocytes % 34.5 % Monocytes % 6.1 % Eosinophils % 2.2 % Basophils % 0.5 % Nucleated Red Blood Cells % 0.0 /100WBC Immature Granulocytes # 0.010 10^3/ul Neutrophils # 3.5 10^3/ul Lymphocytes # 2.2 10^3/ul Monocytes # 0.4 10^3/ul Eosinophils # 0.1 10^3/ul Basophils # 0.0 10^3/ul Nucleated Red Blood Cells # 0.0 10^3/ul Sodium Level 141 mmol/L Potassium Level 4.3 mmol/L Chloride Level 105 mmol/L Carbon Dioxide Level 27 mmol/L Anion Gap 9 Blood Urea Nitrogen 16 mg/dl Creatinine 0.77 mg/dl Est Glomerular Filtrat Rate mL/min > 60 mL/min Glucose Level 89 mg/dl Calcium Level 9.3 mg/dl Current Medications Medications Dose Sig/Edmar Start Time Status Last (Trade) Ordered Route PRN Stop Time Admin Dose Reason Admin Sodium 1,000 ml @ Q1H STAT 03/28/19 DC 03/28/19 Chloride 1,000 mls/hr IV 09:56 03/28/19 10:16 10:55 1 mg ONCE STAT 03/28/19 DC 03/28/19 Hydromorphone IV 09:56 03/28/19 10:15 HCl 09:57 (Dilaudid) Ondansetron 4 mg ONCE STAT 03/28/19 DC 03/28/19 HCl (Zofran IV 09:56 03/28/19 10:15 Inj) 09:57 25 mg ONCE ONCE 03/28/19 DC 03/28/19 Diphenhydrami PO 10:00 03/28/19 10:15 ne HCl 10:01 (Benadryl) Procedures/MDM IV line was established patient was placed on desk monitor rhythm strip revealed a sinus rhythm at about 80 bpm with upright P and T waves. Patient was afebrile I administered hydromorphone 1 mg IV x2, Benadryl 25 mg p.o., Zofran 4 mg IV CBC and electrolytes were within normal limits. This is the patient's second presentation to the ER in 2 days and fourth p resentation in 1 month. She will be admitted to [facility] for continued IV hydration medical management and analgesia although after today's presentation an VALERIA report was filed by our ER director from our emergency department and if she returns to the emergency department in the future with recurrence of her chronic pain we will only administer oral opioid analgesics until she adequately follows up with a pain specialist and her larriman Patient admitted to [facility] Diagnosis: Primary Impression: Chronic pain Chronic pain type: chronic pain syndrome Qualified Codes: G89.4 - Chronic pain syndrome Additional Impression: Sickle cell crisis Condition: EVERETT Terrazas MD March 28, 2019 12:16
[2019-03-28] MEDS ORDERED: SOD CHLORIDE 0.9% 1,000 ML IV SCH (12:41)
--- NOTE | 2019-03-28 12:52 | PDOCDIS ---
Discharge Instructions CONDITION [id number] Patient Condition: [id number] Stable HOME CARE INSTRUCTIONS: [id number] Diet Instructions: [id number] Low Fat /Cholesterol ACTIVITY: [id number] Activity Restrictions: [id number] Slowly Increase Activity Rest between Activity Avoid heavy lifting FOLLOW UP/APPOINTMENTS Follow-up Plan Please take your medications as prescribed, and follow-up with your specialist regarding your possible sickle cell disease issues with [facility] the [facility]. LATONIA ANDERSON March 28, 2019 12:52
[2019-03-28] MEDS ORDERED: ACETAMINOPHEN 325 MG TAB PO PRN (13:00)
[2019-03-28] MEDS ORDERED: NACL 0.9% 3 ML SYG IV SCH (13:00)
[2019-03-28] MEDS ORDERED: DOCUSATE SODIUM 100 MG CAP PO PRN (13:00)
[2019-03-28] MEDS ORDERED: hydrALAzine 20 MG INJ IV PRN (13:00)
[2019-03-28] MEDS ORDERED: NITROGLYCERIN (SL) 0.4 MG TAB SL PRN (13:00)
[2019-03-28] MEDS ORDERED: ONDANSETRON 4 MG INJ IV PRN (13:00)
[2019-03-28] MEDS ORDERED: HYDROCODONE/APAP (5/325) TAB PO PRN (13:00)
[2019-03-28] MEDS ORDERED: ALBUTEROL/IPRATROPIUM (NEB) 3 ML AMP HHN PRN (13:00)
[2019-03-28] MEDS ORDERED: HYDROmorphONE 4 MG TAB PO PRN (13:00)
[2019-03-28] MEDS ORDERED: LORAZEPAM 2 MG INJ IV PRN (13:00)
[2019-03-28] MEDS ORDERED: MAGNESIUM HYDROXIDE 30ML CUP PO PRN (13:00)
[2019-03-28] MEDS ORDERED: DIPHENHYDRAMINE 50 MG CAP PO PRN (13:00)
--- NOTE | 2019-03-28 13:00 | HP ---
Date/Time of Note Date/Time of Note DATE: 03/28/19 TIME: 12:53 Assessment/Plan VTE Prophylaxis SCD applied (from Nsg): Yes Pharmacological prophylaxis: other Lines/Catheters IV Catheter Type (from Nrsg): Mid Line Assessment/Plan Hospital Course Assessment and plan: 34-year-old female with questionable sickle cell disease coming in with body pains, secondary to possible sickle cell crisis. #Body pain: Possibly secondary to sickle cell crisis. Of note this is patient's second visit to the hospital in the last 2 days and fourth visit in the last 1 month. -Check TSH A1c lipid panel, start patient on Dilaudid 1 mg intramuscular every 6 hours as needed -Continue IV fluids, add folic acid and hydroxyurea -Check sickle cell screen, there is no record of this in our computer system during patient's prior admissions here #Anxiety/depression: Ativan as needed, continue home Seroquel as well Result Diagram: 03/28/19 1015 03/28/19 1015 Results 24hrs Laboratory Tests Test 03/28/19 10:15 White Blood Count 6.2 Red Blood Count 4.24 Hemoglobin 9.2 L Hematocrit 31.7 L Mean Corpuscular Volume 74.8 L Mean Corpuscular Hemoglobin 21.7 L Mean Corpuscular Hemoglobin Concent 29.0 L Red Cell Distribution Width 16.5 H Platelet Count 437 #H Mean Platelet Volume 9.4 Immature Granulocytes % 0.200 Neutrophils % 56.5 Lymphocytes % 34.5 Monocytes % 6.1 Eosinophils % 2.2 Basophils % 0.5 Nucleated Red Blood Cells % 0.0 Immature Granulocytes # 0.010 Neutrophils # 3.5 Lymphocytes # 2.2 Monocytes # 0.4 Eosinophils # 0.1 Basophils # 0.0 Nucleated Red Blood Cells # 0.0 Sodium Level 141 Potassium Level 4.3 Chloride Level 105 Carbon Dioxide Level 27 Anion Gap 9 Blood Urea Nitrogen 16 Creatinine 0.77 Est Glomerular Filtrat Rate mL/min > 60 Glucose Level 89 Calcium Level 9.3 HPI/ROS Admit Date/Time Admit Date/Time Hx of Present Illness 34-year-old woman with a history of possible sickle cell disease, chronic recurrent pain syndrome, opioid dependence who presents to the ER today with body aches. Of note this is patient's second visit to the ER in the last 2 days, and apparently her fourth visit to the hospital in the last 1 month for similar issues. Per records patient was last hospitalized here in the hospital from March 02 March 04, 2019 for similar issue. Presently patient stated using oral hydromorphone at home without relief of her pain. Denies shortness of breath, cough, fever chills, upper lower GI bleeding, nausea vomiting, fever chills. PMH/Family/Social Past Medical History Medications Current Medications IV Flush (NS 3 ml) 3 ml PER PROTOCOL IV ; Start 03/28/19 at 13:00; Status UNV Ondansetron HCl (Zofran Inj) 4 mg Q6H PRN IV NAUSEA/VOMITING; Start 03/28/19 at 13:00; Status UNV Acetaminophen (Tylenol Tab) 650 mg Q6H PRN PO .PAIN 1-3 OR TEMP; Start 03/28/19 at 13:00; Status UNV Acetaminophen/ Hydrocodone Bitart (Hoffman (5/325)) 1 tab Q6H PRN PO .MOD PAIN 4- 6; Start 03/28/19 at 13:00; Status UNV Docusate Sodium (Colace) 100 mg Q12H PRN PO .CONSTIPATION; Start 03/28/19 at 13:00; Status UNV Magnesium Hydroxide (Milk Of Mag) 30 ml DAILY PRN PO .CONSTIPATION; Start 03/28/19 at 13:00; Status UNV Lorazepam (Ativan) 0.5 mg Q6H PRN IV ANXIETY; Start 03/28/19 at 13:00; Status UNV Sodium Chloride 1,000 ml @ 100 mls/hr Q10H IV ; Start 03/28/19 at 12:41; Status UNV Albuterol/ Ipratropium (Duoneb) 3 ml Q4H RESP THERAPY PRN HHN SHORTNESS OF BREATH; Start 03/28/19 at 13:00; Status UNV Hydralazine HCl (Apresoline) 10 mg Q6H PRN IV ELEVATED BLOOD PRESSURE; Start 03/28/19 at 13:00; Status UNV Nitroglycerin (Nitroglycerin (Sl Tab) 0.4 Mg) 1 tab Q5M PRN SL ANGINA; Start 03/28/19 at 13:00; Status UNV Diphenhydramine HCl (Benadryl) 50 mg Q6 PRN PO ITCHING; Start 03/28/19 at 13:00; Status UNV Folic Acid (Folic Acid) 1 mg DAILY PO ; Start 03/29/19 at 09:00; Status UNV Hydromorphone HCl (Dilaudid) 4 mg Q4H PRN PO PAIN; Start 03/28/19 at 13:00; Status UNV Sertraline HCl (Zoloft) 50 mg QPM PO ; Start 03/28/19 at 21:00; Status UNV Sertraline HCl (Zoloft) 100 mg QAM PO ; Start 03/29/19 at 09:00; Status UNV Hydroxyurea (Hydrea) 500 mg DAILY PO ; Start 03/28/19 at 13:00; Status UNV Coded Allergies: ketorolac (Unverified Allergy, Unknown, HIVES, 03/28/19) morphine (Unverified Allergy, Unknown, HIVES, 03/28/19) prochlorperazine (Unverified Allergy, Unknown, HIVES, 03/28/19) haloperidol (Unverified Adverse Reaction, Unknown, 03/28/19) metoclopramide (Unverified Adverse Reaction, Unknown, 03/28/19) Past Surgical History Past Surgical Hx: other (Appendectomy, ovarian cyst surgery, partial splenectomy) Family History Significant Family History: no pertinent family hx Social History Smoking Status: Current some day smoker Exam/Review of Systems Vital Signs Vitals Vital Signs Date Temp Pulse Resp B/P (MAP) Pulse Ox O2 O2 Flow FiO2 Time Delivery Rate 03/28/19 69 16 130/67 98 Room Air 11:30 (88) 03/28/19 98.0 09:07 Exam Exam General: Lying in bed, no acute distress Head: Normocephalic, atraumatic. Eyes: Pupils equally reactive, EOM intact ENT: Moist mucous membranes Neck: Supple, no lymphadenopathy Respiratory: Lungs clear bilaterally, no distress Cardiovascular: RRR, no murmurs, rubs, or gallops Abdominal: Soft, non-tender, non-distended, no peritoneal signs MSK: No edema, no unilateral swelling, 5/5 strength Neurologic: No focal deficits Skin: No rash RAANNAMARIE,LATONIA S. March 28, 2019 13:00
--- NOTE | 2019-03-28 13:05 | DS ---
Date/Time of Note Date/Time of Note DATE: 03/28/19 TIME: 13:01 Discharge Summary Admission/Discharge Info Admit Date/Time Discharge Date/Time Discharge Diagnosis # Possible sickle cell crisis: Sickle cell screen blood test result ordered still pending #Anxiety/possible depression #Microcytic anemia - likely secondary to sickle cell disease Patient Condition: Stable Hx of Present Illness 34-year-old woman with a history of possible sickle cell disease, chronic recurrent pain syndrome, opioid dependence who presents to the ER today with body aches. Of note this is patient's second visit to the ER in the last 2 days, and apparently her fourth visit to the hospital in the last 1 month for similar issues. Per records patient was last hospitalized here in the hospital from March 02 March 04, 2019 for similar issue. Presently patient stated using oral hydromorphone at home without relief of her pain. Denies shortness of breath, cough, fever chills, upper lower GI bleeding, nausea vomiting, fever chills. Hospital Course Patient was briefly admitted after receiving 2 doses of IV hydromorphone in the ER. Her vital signs are stable, she stated relief in her pain symptoms. Sickle cell screen was ordered but was still pending by the time of discharge. Because the patient is clinically improved now, ambulating, tolerating p.o. diet, vital signs are stable, she will be discharged home today in improved condition. She is strongly encouraged to follow-up with her academic affairs specialist who she says she has an appointment with at [facility] in the next few days. Home Meds Active Scripts Ondansetron Hcl* (Zofran*) 4 Mg Tablet, 4 MG PO Q8H PRN for NAUSEA AND/OR VOMITING, #30 TAB Prov:EVERETT LAMBERT MD 02/26/19 Reported Medications Quetiapine Fumarate* (Seroquel*) 400 Mg Tablet, 400 MG PO BID, TAB 01/19/19 Sertraline Hcl* (Sertraline Hcl*) 100 Mg Tablet, 100 MG PO QAM, #30 TAB 01/16/19 Sertraline Hcl* (Sertraline Hcl*) 50 Mg Tablet, 50 MG PO QPM, #30 TAB 01/16/19 Hydromorphone Hcl* (Hydromorphone Hcl*) 4 Mg Tablet, 4 MG PO Q4H PRN for PAIN, TAB 01/16/19 Diphenhydramine Hcl* (Benadryl*) 50 Mg Cap, 50 MG PO Q6 PRN for ITCHING, CAP 01/16/19 Folic Acid* (Folic Acid*) 1 Mg Tablet, 1 MG PO DAILY, TAB 01/16/19 Discontinued Reported Medications Trazodone Hcl* (Trazodone Hcl*) 50 Mg Tablet, 50 MG PO BID, #60 TAB 01/16/19 Discontinued Scripts Hydroxyurea* (Hydroxyurea*) 500 Mg Capsule, 500 MG PO BID, #14 CAP Prov:STEVENSON GONZALEZ MD 01/09/19 Follow-up Plan Please take your medications as prescribed, and follow-up with your specialist regarding your possible sickle cell disease issues [facility] Primary Care Provider Care Physician No Primary Time spent on discharge: > 30 minutes Pending Labs Laboratory Tests Test 03/28/19 10:15 White Blood Count 6.2 10^3/ul (4.8-10.8) Red Blood Count 4.24 10^6/ul (4.20-5.40) Hemoglobin 9.2 g/dl (12.0-16.0) Hematocrit 31.7 % (37.0-47.0) Mean Corpuscular Volume 74.8 fl (82.0-101.0) Mean Corpuscular Hemoglobin 21.7 pg (29.0-33.0) Mean Corpuscular Hemoglobin Concent 29.0 g/dl (32.0-37.0) Red Cell Distribution Width 16.5 % (11.5-14.5) Platelet Count 437 10^3/UL (140-415) Mean Platelet Volume 9.4 fl (7.4-10.4) Immature Granulocytes % 0.200 % (0.001-0.429) Neutrophils % 56.5 % (39.0-77.0) Lymphocytes % 34.5 % (15.0-51.0) Monocytes % 6.1 % (0.0-11.0) Eosinophils % 2.2 % (0.0-7.0) Basophils % 0.5 % (0.0-2.0) Nucleated Red Blood Cells % 0.0 /100WBC (0.0-0.0) Immature Granulocytes # 0.010 10^3/ul (0.0-0.031) Neutrophils # 3.5 10^3/ul (1.6-7.5) Lymphocytes # 2.2 10^3/ul (0.8-2.9) Monocytes # 0.4 10^3/ul (0.3-0.9) Eosinophils # 0.1 10^3/ul (0.0-0.5) Basophils # 0.0 10^3/ul (0.0-0.1) Nucleated Red Blood Cells # 0.0 10^3/ul (0.0-0.0) Sodium Level 141 mmol/L (135-144) Potassium Level 4.3 mmol/L (3.5-5.1) Chloride Level 105 mmol/L (97-110) Carbon Dioxide Level 27 mmol/L (21-31) Anion Gap 9 (5-13) Blood Urea Nitrogen 16 mg/dl (7-20) Creatinine 0.77 mg/dl (0.44-1.00) Est Glomerular Filtrat Rate mL/min > 60 mL/min (>60) Glucose Level 89 mg/dl (70-220) Calcium Level 9.3 mg/dl (8.4-10.2) LATONIA ANDERSON March 28, 2019 13:05
[2019-03-28 13:08] VITALS: BP 129/69; PULSE 72; RESP 16
[2019-03-28] MEDS ORDERED: HYDROXYUREA 500 MG CAP PO SCH (14:30)
[2019-03-28] MEDS ORDERED: SERTRALINE 50 MG TAB PO SCH (21:00)
[2019-03-29] MEDS ORDERED: FOLIC ACID 1 MG TAB PO SCH (09:00)
[2019-03-29] MEDS ORDERED: SERTRALINE 100 MG TAB PO SCH (09:00)
== END 2019-03-28 13:11 | disposition home or self-care (01) ==
LOC: E/R 08:51 → CANBEDREQ 13:14
DX: G89.4 Chronic pain syndrome (principal); F17.210 Nicotine dependence, cigarettes, uncomplicated; R40.2142 Coma scale, eyes open, spontaneous, at arrival to emergency department; R40.2362 Coma scale, best motor response, obeys commands, at arrival to emergency department; R40.2252 Coma scale, best verbal response, oriented, at arrival to emergency department
CPT/HCPCS: 36415; 80048; 84439; 85025; 85660; 96374; 96375; 96376; 99284; J1170; J2405; J7030